=== PATIENT | female | born 1955 | race Caucasian/White ===

== ENCOUNTER → 2023-01-09 12:34 | Outpatient (CLI) | payer MEDICARE, OTHER, SELFPAY ==
--- NOTE | 2023-01-09 12:55 | MR_ITS ---
FINAL REPORT CLINICAL HISTORY: ACUTE PAIN OF RIGHT KNEE pain in the anterior aspect of knee right below patella x 3 -4 weeks COMPARISON: None FINDINGS: Multiplanar MR imaging of the right knee was performed without contrast. There is medial meniscal degeneration with a tear of the body. Lateral meniscus is intact. There is mild degenerative change. The anterior and posterior cruciate ligaments are intact. The medial collateral ligament and lateral ligamentous complex are intact. The patellar and quadriceps tendons are intact. There is no evidence of fracture. There is severe patellofemoral chondromalacia with several subchondral cysts. A small joint effusion is seen. The musculature is intact. IMPRESSION: Medial meniscal tear. Severe patellofemoral chondromalacia. Reviewed, Interpreted and Dictated by Mickey Bauer III, MD Transcribed by Samara Blanc Authenticated and [facility]
== END ==
PROVIDERS: PCP Nurse Practitioner Family; Visit Provider Physician Assistant
DX: M25.561 Pain in right knee (principal); S83.281A Other tear of lateral meniscus, current injury, right knee, initial encounter
CPT/HCPCS: 73721

== ENCOUNTER → 2023-01-20 08:40 | Outpatient (CLI) | payer MEDICARE, OTHER, SELFPAY ==
--- NOTE | 2023-01-20 08:49 | XR_ITS ---
FINAL REPORT CLINICAL HISTORY: right knee pain FINDINGS: 3 views of the right knee were obtained. There is no acute fracture or dislocation. There is moderate narrowing of the patellofemoral joint. There is sharpening of the tibial spines. IMPRESSION: Mild to moderate osteoarthritis. Reviewed, Interpreted and Dictated by Sumit Tucker MD Transcribed by Shayne Goldman Authenticated and [facility]
== END ==
PROVIDERS: PCP Nurse Practitioner Family; Visit Provider Orthopaedic Surgery
DX: M25.561 Pain in right knee (principal)
CPT/HCPCS: 73562

== ENCOUNTER → 2023-02-09 11:48 | Outpatient (CLI) | payer MEDICARE, OTHER, SELFPAY ==
--- NOTE | 2023-02-09 12:05 | ECG_ITS ---
APPROVED REPORT Exam: Resting ECG HR:71 bpm ECG Measurements Heart Rate 71 AXES AR 177 P 16 QRSd 88 QRS -20 QT 380 T 62 QTc 403 Conclusion SINUS RHYTHM WITH OCCASIONAL SUPRAVENTRICULAR PREMATURE COMPLEXES NONSPECIFIC ST & T-WAVE ABNORMALITY BORDERLINE ECG UNCONFIRMED REPORT Electronically signed by : Abhi Peñaloza MD 02/10/2023 21:22:41
--- NOTE | 2023-02-09 12:19 | XR_ITS ---
FINAL REPORT CLINICAL HISTORY: htn. pre-op for knee surgery next week FINDINGS: Two views of the chest were obtained. The heart size and pulmonary vascularity are within normal limits. The mediastinum is normal. No acute pulmonary abnormality is identified. There is no pneumothorax. The bony thorax is intact. IMPRESSION: No active cardiopulmonary disease. Reviewed, Interpreted and Dictated by Mickey Bauer III, MD Transcribed by Shayne Goldman Authenticated and [facility]
[2023-02-09 14:09] LABS: Basophils # 0.1 K/mm3 (0-0.2); Basophils % 0.7 % (0.1-2.0); Eosinophils # 0.3 K/mm3 (0.0-0.4); Eosinophils % 4.1 % (0.1-12.0); Hematocrit 40.8 % (37.0-47.0); Hemoglobin 13.2 g/dL (12.2-16.2); Lymphocytes # 1.6 K/mm3 (0.7-4.5); Lymphocytes % 25.7 % (10-50); Mean Corpuscular HGB Conc 32.3 g/dL (31.8-35.4); Mean Corpuscular Hemoglobin 30.3 pg (27.0-31.2); Mean Corpuscular Volume 93.8 fl (81-99); Mean Platelet Volume 8.4 fl (7.4-10.4); Monocytes # 0.4 K/mm3 (0.1-1.0); Monocytes % 6.8 % (1.7-9.3); Neutrophils % 62.6 % (37.0-80.0); Platelet Count 482 K/mm3 (142-424); Red Blood Count 4.35 M/mm3 (4.20-5.40); Red Cell Distribution Width 12.9 % (11.5-17.5); White Blood Count 6.4 K/mm3 (4.8-10.8)
[2023-02-09 14:25] LABS: Chloride 101 mmol/L (98-107); Potassium 4.3 mmoL/L (3.5-5.1); Sodium 137 mmol/L (136-145)
[2023-02-09 14:28] LABS: Alanine Aminotransferase 27 U/L (12-78); Albumin Level 4.4 g/dl (3.5-5.0); Albumin/Globulin Ratio 1.8 (1.1-1.8); Alkaline Phosphatase 104 U/L (38-126); Anion Gap 12.3 mEq/L (5-15); Aspartate Amino Transferase 31 U/L (14-36); Bilirubin,Total 0.2 mg/dl (0.2-1.3); Blood Urea Nitrogen 16 mg/dl (7-17); Carbon Dioxide 28 mmol/L (22.0-30.0); Estimated Glomerular Filt Rate 72 ml/min (>60); GFR (African American) 87 ML/MIN (>60); Globulin 2.5 g/dL (1.3-3.2); Total Protein,Serum 6.9 g/dl (6.3-8.2)
[2023-02-09 14:29] LABS: Calcium 10.6 mg/dl (8.4-10.2); Glucose 88 mg/dl (74-100)
== END ==
PROVIDERS: PCP Nurse Practitioner Family; Visit Provider Orthopaedic Surgery
DX: M25.561 Pain in right knee (principal); S83.231A Complex tear of medial meniscus, current injury, right knee, initial encounter; Z01.818 Encounter for other preprocedural examination
CPT/HCPCS: 36415; 71046; 80053; 85025; 93005

== ENCOUNTER 2023-02-18 06:00 | Day surgery (SDC) | payer MEDICARE, OTHER, SELFPAY ==
[2023-02-17 09:22] VITALS: BMI 30.3
[2023-02-18] VITALS (11 sets, daily range): BP systolic 108–143; BP diastolic 62–75; PULSE 62–93; RESP 12–18; TEMP 36.1–43; O2SAT 94–97
--- NOTE | 2023-02-18 07:06 | P.PN_ITS ---
[facility] Disclaimer: The information contained in this section may have been updated after the patient was seen, as this information can be updated by other users. Medical History HTN (hypertension) Surgical History H/O tubal ligation Family History Other Family history of heart disease Social History Smoking Status: Never smoker alcohol intake: never substance use type: denies use current occupational status: retired Travel in the last 8 weeks: None [facility] Anesthesia Checklist Patient Identification Patient Identification: Arm Band and Verbal (Name & ) Structural Data Admitted From: Home Planned Operative Procedure/s: Knee arthroscopy Consent for Planned Operative Procedure(s) Verified: Yes Chart Verification Results Verified: CBC and BMP Additional verifications Anesthesia Reactions: No Hx Blood Transfusions: No Blood Transfusion Reaction: No Airway Assessment C-Spine Mobility Assessed: Yes TMJ Mobility Assessed: Yes Dentition: Good Dentition Neurological Assessment Level of Consciousness: Awake Hx Seizures: No Numbness or tingling in extremities: No Anesthesia Plan Anesthesia Risk discussed: Yes Anesthesia Plan: Verified ASA Class: II Anesthesia Type: General
--- NOTE | 2023-02-18 08:01 | EXP.ANES.CKL ---
[facility] Disclaimer: The information contained in this section may have been updated after the patient was seen, as this information can be updated by other users. Medical History HTN (hypertension) Surgical History H/O tubal ligation Family History Other Family history of heart disease Social History (Updated 02/18/23 @ 07:07 by Tim Carr CRNA) Smoking Status: Never smoker alcohol intake: never substance use type: denies use current occupational status: retired Travel in the last 8 weeks: None [facility] Anesthesia Checklist Patient Identification Patient Identification: Verbal (Name & ) Structural Data Admitted From: Home Planned Operative Procedure/s: r knee arthro Consent for Planned Operative Procedure(s) Verified: Yes NPO Status Verified Time NPO: 00:00 Additional verifications Anesthesia Reactions: No Hx Blood Transfusions: No Blood Transfusion Reaction: No Airway Assessment C-Spine Mobility Assessed: Yes TMJ Mobility Assessed: Yes Dentition: Good Dentition Neurological Assessment Level of Consciousness: Awake, Alert and Appropriate Anesthesia Plan Anesthesia Risk discussed: Yes Anesthesia Plan: Verified ASA Class: II Anesthesia Type: General
--- NOTE | 2023-02-18 08:29 | EXP.ANES.I ---
[facility] Anesthesia Record Part I Anesthesia Record I Intake, IV Amount: 1,000 Estimated blood loss (mL): 0 Urine output (mL): 0 Blood Pressure: 133/75 SaO2: 96 Pulse Rate: 80 Respiratory Rate: 12 Temperature: 97.5 F Patient is:: Awake and Stable Stable to PACU at:: 08:25
--- NOTE | 2023-02-18 08:40 | EXP.OP.NOTE ---
Date of procedure: 02/18/23 Pre-op Diagnosis:: Right knee meniscus tear and patellofemoral osteoarthritis Post-op Diagnosis:: Same Procedure performed:: 1. Right knee arthroscopy with partial medial meniscectomy #2 right knee arthroscopy with chondroplasty patella and trochlea Surgeon:: Stevie Ochoa DO GAS APPLIANCE ADJUSTER:: Manas Tabares Anesthesia: GETA Estimated blood loss (mL): 0 Operative findings:: See dictation Operative note:: Patient was identified preoperatively. Right knee marked with yes my initials. Transported operative suite placed supine on the operating bed. Right lower extremity was prepped and draped normal sterile fashion once prepped and draped final operative timeout performed to identify proper patient procedure and extremity. Everyone involved in the case agreed there were no counter indications to beginning. She did receive preoperative antibiotics clindamycin. Esmarch was used to exsanguinate the extremity and pneumatic tourniquet inflated to 300 mmHg. Skin F was used incise standard anterior lateral portal. Blunt with trocar was placed in the patellofemoral joint. This was exchanged with a camera. Swept directly into the medial joint line where the anterior medial portal was made under direct visualization. This was exchanged with a probe. Within the medial joint line there was a large tear of the posterior horn of the medial meniscus using a combination of straight biter and sucker shaver partial medial meniscectomy was performed back to stable rim. This was reprobed and found to be stable. Tensions brought to the intercondylar notch where the ACL was seen and intact. Tensions brought to the lateral joint line the lateral cartilage was relatively well-preserved with meniscus intact. Swept back into the medial and lateral gutters there is no pathology here back into the patellofemoral joint. Within the patellofemoral joint there is loose bowen cartilage on the undersurface of the patella and loose bowen cartilage in the trochlea using a sucker shaver this was lightly debrided to remove only the loose cartilage in the trochlea and patella. Camera was then removed the joint was drained local anesthesia filtrated the portal sites skin closed with nylon stitch. Tourniquet deflated dressing placed from toe to thigh patient waken anesthesia taken recovery stable condition. Condition: stable Disposition: PACU Complications:: None apparent
--- NOTE | 2023-02-18 08:55 | SUR.PHASEI ---
854- detailed report called to martha thomas in post op [id number]- pt left in stable condition with martha thomas. all dressings CDI, VSS
--- NOTE | 2023-02-19 07:09 | EXP.ANES.II ---
[facility] Anesthesia Record Part II Anesthesia Record Part II Discharge Time: 08:55 Destination: Surgical Day Care (OP Surgery) PACU nurse assessment reviewed?: Yes Patient Condition:: Good Anesthesia Complications:: None Swallowing reflex intact?: Yes Cyanosis?: No Blood Pressure: 117/62 Pulse Rate: 62 Temperature: 97.8 F Mental Status: Alert & Oriented Pain level:: 1 Nausea and/or vomitting:: None Intake, IV Amount: 0
[2023-02-19 07:10] VITALS: BP 117/62; PULSE 62; TEMP 36.6
== END 2023-02-18 09:26 | disposition home or self-care (01) ==
PROVIDERS: PCP Nurse Practitioner Family; Visit Provider Orthopaedic Surgery
PROC: (CPT 29870; principal; 2023-02-18 07:30)
DX: S83.231A Complex tear of medial meniscus, current injury, right knee, initial encounter (principal); Z79.899 Other long term (current) drug therapy; I10 Essential (primary) hypertension; M17.11 Unilateral primary osteoarthritis, right knee
CPT/HCPCS: 29881; 96374; J2405

== ENCOUNTER → 2023-04-23 09:46 | Outpatient (CLI) | payer MEDICARE, OTHER, SELFPAY ==
[2023-04-23 10:01] LABS: Microscopic, Urine URINE MICROSCOPIC (MICROSCOPIC)
[2023-04-23 10:19] LABS: Appearance,Urine CLEAR (Clear); Bilirubin,Urine Negative (Negative); Blood, Urine Negative (Negative); Color,Urine YELLOW (Yellow); Glucose,Urine (UA) Negative (Negative); Ketones,Urine Negative (Negative); Leukocyte Esterase,Urine 2+ (Negative); Nitrate,Urine Negative (Negative); Protein,Urine Negative (Negative); Urobilinogen,Urine 0.2 EU/dl (0.2)
[2023-04-23 10:24] LABS: Basophils % 0.8 % (0.1-2.0); Eosinophils # 0.3 K/mm3 (0.0-0.4); Eosinophils % 5.2 % (0.1-12.0); Hematocrit 40.4 % (37.0-47.0); Hemoglobin 12.9 g/dL (12.2-16.2); Lymphocytes # 1.4 K/mm3 (0.7-4.5); Lymphocytes % 27.5 % (10-50); Mean Corpuscular Hemoglobin 29.6 pg (27.0-31.2); Mean Corpuscular Volume 92.5 fl (81-99); Mean Platelet Volume 7.8 fl (7.4-10.4); Monocytes # 0.3 K/mm3 (0.1-1.0); Monocytes % 6.6 % (1.7-9.3); Platelet Count 416 K/mm3 (142-424); Red Blood Count 4.37 M/mm3 (4.20-5.40); Red Cell Distribution Width 13.2 % (11.5-17.5); White Blood Count 5.1 K/mm3 (4.8-10.8)
[2023-04-23 10:31] LABS: Bacteria,Urine 1+ /lpf
[2023-04-23 10:59] LABS: Albumin Level 4.4 g/dl (3.5-5.0); Anion Gap 9.2 mEq/L (5-15); Blood Urea Nitrogen 16 mg/dl (7-17); Calcium 10.3 mg/dl (8.4-10.2); Carbon Dioxide 30 mmol/L (22.0-30.0); Chloride 104 mmol/L (98-107); Estimated Glomerular Filt Rate 72 ml/min (>60); GFR (African American) 87 ML/MIN (>60); Glucose 98 mg/dl (74-100); Phosphorous 3.5 mg/dl (2.5-4.5); Potassium 4.2 mmoL/L (3.5-5.1); Sodium 139 mmol/L (136-145)
[2023-04-23 11:11] LABS: Intact Parathyroid Hormone 80.5 pg/mL (7.5-53.5)
[2023-04-23 11:15] LABS: 25-OH Vitamin D, Total 17.9 ng/mL (30-100)
[2023-04-23 16:10] LABS: Creatinine,Urine Random 82 mg/dL (Not Estab.)
[2023-04-23 16:13] LABS: Microalbumin/Creatinine Ratio 13.6
== END ==
PROVIDERS: PCP Nurse Practitioner Family; Visit Provider Nurse Practitioner
DX: E83.52 Hypercalcemia (principal); B96.29 Other Escherichia coli [E. coli] as the cause of diseases classified elsewhere; R82.90 Unspecified abnormal findings in urine
CPT/HCPCS: 36415; 80069; 81001; 82043; 82306; 82570; 83970; 85025; 87086; 87088; 87186

== ENCOUNTER → 2023-05-11 09:31 | Outpatient (POV) | payer MEDICARE, OTHER, SELFPAY | PROVIDERS: Visit Provider Internal Medicine Nephrology | DX: Z00.00 Encounter for general adult medical examination without abnormal findings (principal) ==

== ENCOUNTER → 2023-07-01 10:20 | Outpatient (CLI) | payer MEDICARE, OTHER, SELFPAY ==
[2023-07-01 12:35] LABS: Albumin Level 4.2 g/dl (3.5-5.0); Anion Gap 10.1 mEq/L (5-15); Blood Urea Nitrogen 17 mg/dl (7-17); Calcium 10.1 mg/dl (8.4-10.2); Carbon Dioxide 30 mmol/L (22.0-30.0); Chloride 103 mmol/L (98-107); Estimated Glomerular Filt Rate 83 ml/min (>60); GFR (African American) 101 ML/MIN (>60); Glucose 94 mg/dl (74-100); Potassium 4.1 mmoL/L (3.5-5.1); Sodium 139 mmol/L (136-145)
[2023-07-01 12:47] LABS: 25-OH Vitamin D, Total 32.6 ng/mL (30-100)
[2023-07-03 16:14] LABS: Calcium, Ionized 5.4 mg/dL (4.5-5.6)
== END ==
PROVIDERS: PCP Nurse Practitioner Family; Visit Provider Nurse Practitioner
DX: E83.52 Hypercalcemia (principal); Z68.29 Body mass index [BMI] 29.0-29.9, adult
CPT/HCPCS: 36415; 80069; 82306; 82330; 83970

== ENCOUNTER → 2023-08-04 09:50 | Outpatient (CLI) | payer MEDICARE, OTHER, SELFPAY ==
--- NOTE | 2023-08-04 09:54 | NM_ITS ---
FINAL REPORT CLINICAL HISTORY: HYPERPARATHYROIDISM FINDINGS: 20.6 mCi Technetium 99-M Sestamibi was administered. Planar imaging was performed early and two-hour delayed of the neck and upper thorax. Early imaging shows physiologic uptake within the upper neck involving the salivary glands and lower neck. There is relative increased uptake in the lower left thyroid. On delayed imaging there is mild persistent activity in the lower left thyroid. IMPRESSION: Relatively increased activity in the lower left thyroid that mildly persists on delayed phase. Unclear if this is asymmetric thyroid tissue or underlying parathyroid adenoma inferiorly on the left. Reviewed, Interpreted and Dictated by Sumit Tucker MD Transcribed by Shayne Goldman Authenticated and [facility]
== END ==
PROVIDERS: PCP Nurse Practitioner Family; Visit Provider Nurse Practitioner
DX: E21.3 Hyperparathyroidism, unspecified (principal)
CPT/HCPCS: 78071; A9500

== ENCOUNTER → 2023-08-06 13:12 | Outpatient (CLI) | payer MEDICARE, OTHER, SELFPAY ==
[2023-08-06 14:51] LABS: 25-OH Vitamin D, Total 28.5 ng/mL (30-100)
== END ==
PROVIDERS: PCP Nurse Practitioner Family; Visit Provider Nurse Practitioner
DX: E21.3 Hyperparathyroidism, unspecified (principal); E55.9 Vitamin D deficiency, unspecified; Z68.29 Body mass index [BMI] 29.0-29.9, adult
CPT/HCPCS: 36415; 82306

== ENCOUNTER → 2023-09-11 15:11 | Outpatient (CLI) | payer MEDICARE, OTHER, SELFPAY ==
--- NOTE | 2023-09-11 15:21 | MM_ITS ---
PROCEDURE INFORMATION: Exam: MG Bilateral Screening 3D Mammography Exam date and time: 09/11/2023 3:11 PM Age: 68 years old Clinical indication: Screening examination TECHNIQUE: Imaging protocol: Bilateral Screening tomosynthesis and 2D mammography including computer-aided detection (CAD) when performed. COMPARISON: 1. MG 3D SCREENING MAMMOGRAM 03/11/2022 11:37 AM 2. MG 3D SCREENING MAMMOGRAM 11/29/2020 3:09 PM FINDINGS: MAMMOGRAPHY: Breast composition: There are scattered areas of fibroglandular density. Mass: None. Architectural distortion: None. Calcifications: No suspicious calcifications. Asymmetric density: None. Skin thickening: None. Axillary adenopathy: None. IMPRESSION: No mammographic evidence of malignancy. Annual screening is recommended unless otherwise clinically indicated. ASSESSMENT: BI-RADS Category 1: Negative
== END ==
PROVIDERS: PCP Nurse Practitioner Family; Visit Provider Nurse Practitioner Family
DX: Z12.31 Encounter for screening mammogram for malignant neoplasm of breast (principal)
CPT/HCPCS: 77063; 77067

== ENCOUNTER 2024-01-19 09:14 | Outpatient (CLI) | payer MEDICARE, OTHER, SELFPAY ==
--- NOTE | 2024-01-19 09:18 | XR_ITS ---
FINAL REPORT CLINICAL HISTORY: POST MENOPAUSAL COMPARISON: None FINDINGS: Using L1-4, the bone mineral density of the spine is 1.074 g/cm2, corresponding to T-score of 0.2. Using the left hip, the bone mineral density of the femoral neck is 0.77 g/cm2, corresponding to a T-score of -1.4. Using the right hip, the bone mineral density of the femoral neck is 0.759 g/cm?, corresponding to a T-score of -0.8. NOTE: T-score: Standard deviation compared with peak bone mass of young adult mean. *Following the recommendations of the International Society of Bone densitometry, classification of hip BMD is based on the lower of two T-scores; total hip or femoral neck. IMPRESSION: Bone mineral density of the lumbar spine and the right hip are consistent with normal bone mineral density. Bone mineral density of the left femoral neck is consistent with osteopenia. Reviewed, Interpreted and Dictated by Radha Osborne MD Transcribed by Alta Mueller Authenticated and [facility]
== END 2024-01-19 23:59 | disposition home or self-care (01) ==
LOC: RAD 09:14
PROVIDERS: PCP Nurse Practitioner Family; Visit Provider Surgery Surgical Oncology
DX: E21.3 Hyperparathyroidism, unspecified (principal); Z78.0 Asymptomatic menopausal state; M85.89 Other specified disorders of bone density and structure, multiple sites
CPT/HCPCS: 77080

== ENCOUNTER 2024-05-02 09:25 | Outpatient (CLI) | payer MEDICARE, OTHER, SELFPAY | END 2024-05-02 23:59 | disposition home or self-care (01) | LOC: RT 09:27 | PROVIDERS: PCP Nurse Practitioner Family; Visit Provider Nurse Practitioner Family | DX: R00.2 Palpitations (principal) | CPT/HCPCS: 93225; 93226 ==

== ENCOUNTER 2024-05-19 09:17 | Outpatient (CLI) | payer MEDICARE, OTHER, SELFPAY ==
--- NOTE | 2024-05-19 | CA_ITS ---
APPROVED REPORT Exam: Exercise Treadmill Technologist: Anuradha Conteh, Ht: 5 ft 5 in Wt: 188 lbs BSA: 1.93 m2 HR: 85 bpm BP: 129/78 mmHg Rhythm: Nsr, slow R wave progression Medical History Medical History: HTN, , Hyperlipidemia Medications: Lisinopril,,,,, Pravastatin,,,,, BiOTIN,,,,, Furosemide,,,,, Allergies: Penicillin, red dye Cardiac Risk Factors: HTN, Hyperlipidemia Stress Test Details Test: Jeovanny HR Resting HR: 90 bpm Max Heart Rate (APMHR): 152.185902 bpm Max HR Achieved: 130 bpm Target HR (85% APMHR): 129.553332 bpm % of APMHR: 85.53 Recovery HR: 94 bpm BP Resting BP: 129/78 mmHg Max BP: 230/80 mmHg Recovery BP: 145.0/82.0 mmHg ECG Resting ECG: Nsr, slow R wave progression Clinical Exercise duration: 06:00 min Highest Stage Achieved: Stage 2: 2.5 mph at 12% grade. Exercise capacity: 7.0 METs Stress ECG Conclusion Pt walked 6:00 on Jeovanny protocol Max HR: 130 % of PM: 86% Max BP: 230/80 Mets: 7.0 Test stopped due to: soa, fatigue No CP Rare PVC Within normal ST response to exercise Normal GXT GXT only (no imaging) Test Summary REST . . . . . . . Sitting REST 03:47 0.0 0.0 90 . 129/ 78 . . Stage 1 01:00 10.0 1.7 102 . . . . Stage 1 02:00 10.0 1.7 107 . . . . Stage 1 03:00 10.0 1.7 109 . 190/ 86 . . Stage 2 01:00 12.0 2.5 121 . . . . Stage 2 02:00 12.0 2.5 128 . . . . Stage 2 03:00 12.0 2.5 129 . 230/ 80 . Stop exercise at 06:00 RECOVERY 01:00 0.0 0.0 115 . . . . RECOVERY 02:00 0.0 0.0 103 . 196/ 82 . . RECOVERY 03:00 0.0 0.0 100 . 169/ 70 . . RECOVERY 04:00 0.0 0.0 95 . 169/ 70 . . RECOVERY 05:00 0.0 0.0 94 . 169/ 70 . . RECOVERY 05:40 0.0 0.0 94 . 145/ 82 . . Electronically signed by : Abhi Peñaloza MD 05/20/2024 16:29:13
--- NOTE | 2024-05-19 09:30 | CA_ITS ---
APPROVED REPORT EXAM: Comprehensive 2D, Doppler, and color-flow Echocardiogram Woodworking Machine Offbearer: Paula Mcmahan, RT(R) Ht: 5 ft 5 in Wt: 188lbs BSA: 1.93 BP: 142/84 mmHg Indications: bigeminy, edema, palpitations, fatigue, HTN, hyperlipidemia, family history of HD, father at 59 from [place]. 2D Dimensions Left Atrium 2.58 cm F: 2.7 - 3.8 LA Volume 20.00 mL LVOT 2.05 cm (M/F) 1.5-2.5 LA Volume Index 10.36 mL/m2 (M/F) 16-34 EF AP4 61.20 % GL Strain -19.8 % M-Mode Dimensions RVDd 2.05 cm (0.9-2.6) LVDd 3.78 cm (3.5-5.7) Ao Diam 3.96 cm (2.0-3.7) LVDs 2.81 cm (3.5-5.7) IVSd 1.09 cm (0.6-1.1) PWd 1.25 cm (0.6-1.1) EF (Teich) 51.30% FS 25.70% EDV (Teich) 61.20 mL ESV (Teich) 29.80 mL LV Diastology E Decel Time 156 (160-240 msec) E/A Ratio 0.5 MED E' 4.6 (>= 7 cm/sec) E'/MED E' Ratio 12.20 (<= 14) LAT E' 7.3 (>= 10 cm/sec) E/LAT E' Ratio 7.68 (<= 14) Aortic Valve AI PHT 605.00 ms Mitral Valve MV E Max Gage. 56.0 (40-130 cm/s) MV A Velocity 114.0 (40-130 cm/s) E/A Ratio 0.49 MV Decel. Time 156 (160-240 ms) Left Ventricle The left ventricle is normal size. The left ventricular systolic function is normal. The left ventricular ejection fraction is within the normal range. There is increased LV wall thickness. There is normal LV segmental wall motion. Transmitral Doppler flow pattern suggests impaired LV relaxation. LVEF is 55%. Right Ventricle The right ventricle is normal size. The right ventricular systolic function is normal. Atria The left atrium size is normal. The right atrium size is normal. There is no Doppler evidence of interatrial shunt. Aortic Valve The aortic valve is mildly thickened. There is no aortic valvular stenosis. Mild to moderate aortic regurgitation. Mitral Valve The mitral valve is normal in structure. No evidence of mitral valve stenosis. Trace mitral regurgitation. Tricuspid Valve The tricuspid valve leaflets are thin and pliable. Trace tricuspid regurgitation. There is insufficient TR jet to estimate RVSP. Pulmonic Valve The pulmonary valve is normal in structure. Trace pulmonic regurgitation. Great Vessels The aortic root is mildly dilated, measuring 4.5 cm in diameter. The ascending aorta is mildly dilated, measuring 4.0 cm in diameter. IVC is normal in size and collapses >50% with inspiration. Pericardium There is no pericardial effusion. Other Information Study Quality: Fair Conclusion Normal biventricular size and systolic function. Mild to moderate AI. Mild dilation of aortic root (4.5 cm) and proximal ascending aorta (4.0 cm). Serial TTE evaluations for AI is suggested. Correlation of size of aortic root and ascending aorta with recent or new CTA chest is recommended. Electronically signed by : Hoda Hearn MD 05/25/2024 10:24:02
== END 2024-05-19 23:59 | disposition home or self-care (01) ==
LOC: RT 09:19
PROVIDERS: PCP Nurse Practitioner Family; Visit Provider Nurse Practitioner Family
DX: R07.9 Chest pain, unspecified (principal); I49.9 Cardiac arrhythmia, unspecified
CPT/HCPCS: 93017; 93306

== ENCOUNTER 2024-06-27 09:21 | Outpatient (CLI) | payer MEDICARE, OTHER, SELFPAY ==
[2024-06-27 10:17] LABS: Basophils # 0.1 K/mm3 (0-0.2); Basophils % 1.4 % (0.1-2.0); Eosinophils # 0.3 K/mm3 (0.0-0.4); Eosinophils % 6.2 % (0.1-12.0); Hematocrit 42.8 % (37.0-47.0); Hemoglobin 13.9 g/dL (12.2-16.2); Lymphocytes # 1.5 K/mm3 (0.7-4.5); Lymphocytes % 26.7 % (10-50); Mean Corpuscular HGB Conc 32.4 g/dL (31.8-35.4); Mean Corpuscular Hemoglobin 30.5 pg (27.0-31.2); Mean Corpuscular Volume 94.2 fl (81-99); Mean Platelet Volume 7.4 fl (7.4-10.4); Monocytes # 0.4 K/mm3 (0.1-1.0); Neutrophils # 3.2 K/mm3 (1.8-7.8); Neutrophils % 58.6 % (37.0-80.0); Platelet Count 419 K/mm3 (142-424); Red Blood Count 4.54 M/mm3 (4.20-5.40); Red Cell Distribution Width 13.6 % (11.5-17.5); White Blood Count 5.5 K/mm3 (4.8-10.8)
[2024-06-27 10:30] LABS: Alanine Aminotransferase 23 U/L (12-78); Albumin Level 4.3 g/dl (3.5-5.0); Albumin/Globulin Ratio 1.7 (1.1-1.8); Alkaline Phosphatase 91 U/L (38-126); Anion Gap 9.3 mEq/L (5-15); Aspartate Amino Transferase 26 U/L (14-36); Bilirubin,Total 0.6 mg/dl (0.2-1.3); Blood Urea Nitrogen 15 mg/dl (7-17); Calcium 9.4 mg/dl (8.4-10.2); Carbon Dioxide 27 mmol/L (22.0-30.0); Chloride 105 mmol/L (98-107); Chol/HDL Ratio 3.7 (1-3.5); Cholesterol 206 mg/dl (140-200); Estimated Glomerular Filt Rate 62 ml/min (>60); GFR (African American) 75 ML/MIN (>60); Globulin 2.5 g/dL (1.3-3.2); Glucose 98 mg/dl (74-100); HDL Cholesterol 55 mg/dl (40-60); Potassium 4.3 mmoL/L (3.5-5.1); Sodium 137 mmol/L (136-145); Total Protein,Serum 6.8 g/dl (6.3-8.2); Triglycerides 124 mg/dl (30-150); VLDL Cholesterol 25 mg/dL (0-40)
[2024-06-27 10:40] LABS: Intact Parathyroid Hormone 57.9 pg/mL (7.5-53.5)
[2024-06-27 10:41] LABS: Direct LDL Cholesterol 106.71 mg/dL (100-129)
[2024-06-27 10:44] LABS: 25-OH Vitamin D, Total 32.6 ng/mL (30-100)
[2024-06-27 11:18] LABS: Vitamin B12 495 pg/mL (239-931)
== END 2024-06-27 23:59 | disposition home or self-care (01) ==
PROVIDERS: PCP Nurse Practitioner Family; Visit Provider Nurse Practitioner Family
DX: E83.52 Hypercalcemia (principal); E78.5 Hyperlipidemia, unspecified; G60.9 Hereditary and idiopathic neuropathy, unspecified
CPT/HCPCS: 36415; 80053; 80061; 82306; 82607; 83970; 85025

== ENCOUNTER 2024-06-28 12:24 | Outpatient (CLI) | payer MEDICARE, OTHER, SELFPAY ==
--- NOTE | 2024-06-28 12:31 | CT_ITS ---
FINAL REPORT TECHNIQUE: Thin section axial CT images of the chest were obtained with contrast. Three-D reformatted images were also obtained.This study was performed with techniques to keep radiation doses as low as reasonably achievable (ALARA). Individualized dose reduction techniques using automated exposure control or adjustment of mA and/or kV according to the patient's size were employed. CLINICAL HISTORY: AORTIC ROOT DILATION COMPARISON: None FINDINGS: There is ectasia of the ascending aorta, measuring 39 mm in diameter. There is no evidence of pulmonary embolism. There is no evidence of thoracic aortic dissection. There is no evidence of mediastinal or hilar mass or adenopathy. Mild atelectasis versus scarring is present in the lung bases. There is a 5 mm right middle lobe nodule best seen on image #44 of series 3. No localized inflammatory process is seen within the lungs. Limited images of the upper abdomen are remarkable for several hepatic cysts. Gallstones are noted in the gallbladder with mild wall thickening. Left renal cysts are noted as well. IMPRESSION: No evidence of pulmonary embolism. Ectasia of the ascending aorta, measuring 39 mm in diameter. 5 mm right middle lobe nodule as described above, suggest 6-month follow-up CT of the chest for further evaluation. Gallstones are present in the gallbladder, with mild gallbladder wall thickening but no evidence of biliary ductal dilatation. Reviewed, Interpreted and Dictated by Mickey Bauer III, MD Transcribed by Alta Mueller Authenticated and [facility]
[2024-06-28] MEDS: IOPAMIDOL-370 (76%);100ML BOTTLE 100 ML IV (13:05)
[2024-06-28] MEDS: SODIUM CHLORIDE 0.9% 10ML SYR (RAD ONLY) 10 ML IV (13:05)
[2024-06-28] MEDS: 0.9 % SODIUM CHLORIDE 50 ML VIAL IV (13:05)
== END 2024-06-28 23:59 | disposition home or self-care (01) ==
LOC: RAD 12:24
PROVIDERS: PCP Nurse Practitioner Family; Visit Provider Nurse Practitioner Family
DX: I77.810 Thoracic aortic ectasia (principal)
CPT/HCPCS: 71275; Q9967

== ENCOUNTER 2024-07-04 14:25 | Outpatient (CLI) | payer MEDICARE, OTHER, SELFPAY ==
[2024-07-04 15:22] LABS: Free Thyroxine Index 3.1 ug/dL (5.93-13.13); Triiodothryronine (T3) Uptake 31 % (23.5-40.5)
[2024-07-04 15:36] LABS: Thyroid Stimulating Hormone 1.44 uIU/mL (0.465-4.68)
== END 2024-07-04 23:59 | disposition home or self-care (01) ==
LOC: LAB 14:26
PROVIDERS: PCP Nurse Practitioner Family; Visit Provider Internal Medicine
DX: I35.1 Nonrheumatic aortic (valve) insufficiency (principal); R00.0 Tachycardia, unspecified; R07.9 Chest pain, unspecified; I10 Essential (primary) hypertension; R94.31 Abnormal electrocardiogram [ECG] [EKG]
CPT/HCPCS: 36415; 84436; 84443; 84479

== ENCOUNTER 2024-07-08 06:50 | Outpatient (CLI) | payer MEDICARE, OTHER, SELFPAY ==
--- NOTE | 2024-07-08 | CA_ITS ---
APPROVED REPORT Exam: Exercise Treadmill Technologist: Anuradha Conteh, Ht: 5 ft 6 in Wt: 192 lbs BSA: 1.97 m2 HR: 64 bpm BP: 169/96 mmHg Rhythm: NSR Medical History Medical History: HTN Medications: Lisinopril,,,,, Pravastatin,,,,, Toprol,,,,, BiOTIN,,,,, Furosemide,,,,, TUmeric root extract,,,,, Allergies: Penicillins, red dye Cardiac Risk Factors: HTN, FHX of CAD Stress Test Details Test: Manual Treadmill, Exercise stress testing was performed using a modified Jeovanny protocol. HR Resting HR: 73 bpm Max Heart Rate (APMHR): 152 bpm Max HR Achieved: 134 bpm Target HR (85% APMHR): 129 bpm % of APMHR: 88 Recovery HR: 77 bpm HR response to stress: Normal HR response to stress BP Resting BP: 169.0/96 mmHg Max BP: 226/96 mmHg Recovery BP: 174.0/95.0 mmHg BP response to stress: Abnormal hypertensive response to stress. ECG Resting ECG: NSR Stress EC.[address] depression Arrhythmia: PACs Recovery ECG: Return to baseline within 3 minutes of recovery Recovery Arrhythmia: None Clinical Exercise duration: 07:01 min Highest Stage Achieved: Exercise capacity: 8.2 METs Overall Exercise Capacity for Age: Average Stress ECG Conclusion Pt exercised 7:01 on Jeovanny protocol with speed decreased over last 45 seconds Max HR: 134 % of PM: 88% Max BP: 226/96 Mets: 8.2 Test stopped due to: soa No CP Ectopy: PACs ST changes: 0.[address] depression Conclusion: Average exercise capacity. Hypertensive BP response to exercise. No evidence of ECG changes at peak stress. Myoview images reported separately Test Summary REST . . . . . . . Standing REST . . . . . . . Sitting REST 03:39 0.0 0.0 73 . 169/ 96 . . Stage 1 01:00 10.0 1.7 92 . . . . Stage 1 02:00 10.0 1.7 99 . . . . Stage 1 03:00 10.0 1.7 104 . 196/ 94 . . Stage 2 01:00 12.0 2.5 113 . . . . Stage 2 02:00 12.0 2.5 120 . 226/ 96 . . Stage 2 03:00 12.0 2.5 125 . 226/ 96 . . Stage 3 . . . . . . . Protocol changed to Manual Treadmill Stage 3 01:00 14.0 2.7 132 . . . . Stage 3 01:01 14.0 2.7 132 . . . Stop exercise at 07:01 RECOVERY 01:00 0.0 0.0 113 . . . . RECOVERY 02:00 0.0 0.0 96 . . . . RECOVERY 03:00 0.0 0.0 87 . 209/ 85 . . RECOVERY 04:00 0.0 0.0 82 . 192/ 81 . . RECOVERY 05:00 0.0 0.0 79 . 192/ 81 . . RECOVERY 06:00 0.0 0.0 80 . 176/ 83 . . RECOVERY 07:00 0.0 0.0 77 . 174/ 95 . . RECOVERY 07:21 0.0 0.0 76 . 174/ 95 . . Electronically signed by : Hoda Hearn MD 07/11/2024 12:43:54
--- NOTE | 2024-07-08 06:55 | NM_ITS ---
APPROVED REPORT Exam: Nuclear Stress Test Indication: htn, hyperlipidemia, fm hx, c.p., sob, palpitations, fatigue Patient Location: Outpatient Stress Tech: Anuradha Conteh DC Tech:Lexie Murphy DIMPLE RT (R)(N)(M) Ht: 5 ft 6 in Wt: 190 lbs Bra Size: 38B HR: 73 bpm BP: 169/96 mmHg BSA: 1.96 m2 TID: 1.12 BMI: 30.6 History: htn, hyperlipidemia, fm hx, c.p., sob, palpitations, fatigue Procedure: Patient exercised on Jeovanny protocol 7:00 minutes and sec, resting heart rate 73 bpm, resting blood pressure 169/96 mmHg, with exercise maximum heart rate achived was 134 bpm which is 88 % of the maximum predicted heart rate and blood pressure was 226/96 mmHg. Test was stopped due to sob, fatigue. Patient denied any complaint of chest pain. Patient has exercise capacity, achieved 8.2 METs of workload on treadmill, the blood pressure response to exercise was . Cardiac Stress and Resting SPECT Images: Cardiac Stress and Resting SPECT images were obtained using technetium 99m Myoview 31.5 mCi stress and 10.29 mCi at rest. Resting and stress imaging in supine and prone positions demonstrate no evidence of fixed or reversible perfusion defects. Gated imaging demonstrates normal global and regional LV systolic function. LVEF estimated at 60%. Conclusion: No evidence of fixed or reversible perfusion defects. Gated imaging demonstrates normal global and regional LV systolic function. LVEF estimated at 60%. Of note, the patient had a hypertensive BP response to exercise (BP 226/96 mmHg). BP control is recommended. Electronically signed by : Hoda Hearn MD 07/11/2024 12:55:40
[2024-07-08] MEDS: REGADENOSON 0.4MG/5ML SYRINGE 0.4 MG IV (09:43)
[2024-07-08] MEDS: ISOTOPE MYOVIEW (PER STUDY) 1 DOSE IV (09:43)
[2024-07-08] MEDS: SODIUM CHLORIDE 0.9% 10ML SYR (RAD ONLY) 10 ML IV ×2 (09:43)
== END 2024-07-08 23:59 | disposition home or self-care (01) ==
LOC: RAD 06:51
PROVIDERS: PCP Nurse Practitioner Family; Visit Provider Internal Medicine
DX: R07.9 Chest pain, unspecified (principal)
CPT/HCPCS: 78452; 93017; 93018; A9502; J2785

== ENCOUNTER 2024-08-09 13:50 | Outpatient (CLI) | payer MEDICARE, OTHER, SELFPAY ==
[2024-08-09 14:37] LABS: Creatinine,Urine Random 35 mg/dL (Not Estab.); Microalbumin < 6.000 mg/L (0-16.7)
== END 2024-08-09 23:59 | disposition home or self-care (01) ==
PROVIDERS: PCP Nurse Practitioner Family; Visit Provider Internal Medicine
DX: R60.0 Localized edema (principal); R94.31 Abnormal electrocardiogram [ECG] [EKG]; R06.09 Other forms of dyspnea; R07.89 Other chest pain; R00.0 Tachycardia, unspecified; I35.1 Nonrheumatic aortic (valve) insufficiency; I77.810 Thoracic aortic ectasia
CPT/HCPCS: 82043; 82570; 93270

== ENCOUNTER 2024-08-16 11:32 | Outpatient (CLI) | payer MEDICARE, OTHER, SELFPAY ==
--- NOTE | 2024-08-16 11:40 | US_ITS ---
FINAL REPORT CLINICAL HISTORY: BILATERAL LEG PAIN,HTN,HLD FINDINGS: Complete ankle-brachial indices were obtained. The right CHOLO is 1.1. Left CHOLO is 1.0. IMPRESSION: ABIs are within normal limits bilaterally. Reviewed, Interpreted and Dictated by Mahnaz Morel MD Transcribed by Keila Lopez Authenticated and [facility]
== END 2024-08-16 23:59 | disposition home or self-care (01) ==
LOC: RT 11:34
PROVIDERS: PCP Nurse Practitioner Family; Visit Provider Internal Medicine
DX: I73.9 Peripheral vascular disease, unspecified (principal); I77.810 Thoracic aortic ectasia; R60.0 Localized edema; M79.606 Pain in leg, unspecified; R94.31 Abnormal electrocardiogram [ECG] [EKG]; R06.09 Other forms of dyspnea; R07.89 Other chest pain; R00.0 Tachycardia, unspecified; I35.1 Nonrheumatic aortic (valve) insufficiency
CPT/HCPCS: 93923

== ENCOUNTER 2024-08-29 06:07 | Day surgery (SDC) | payer MEDICARE, OTHER, SELFPAY ==
[2024-08-26 12:14] VITALS: BMI 30.7
[2024-08-29 06:24] VITALS: BP 150/75; PULSE 83; RESP 18; TEMP 36.1; O2SAT 96
[2024-08-29] MEDS: LACTATED RINGERS 1000ML 1,000 ML 25 ML IV (06:31)
--- NOTE | 2024-08-29 07:26 | EXP.ANES.CKL ---
[facility] Disclaimer: The information contained in this section may have been updated after the patient was seen, as this information can be updated by other users. Medical History (Updated 08/29/24 @ 07:31 by Jack Villafana II, MD) Claudication Ascending aorta dilatation Edema of both lower extremities HTN (hypertension) Surgical History History of parathyroid surgery History of surgery H/O knee surgery H/O tubal ligation Family History Other Breast cancer Colon cancer Family history of heart disease Hypertension Social History (Updated 08/29/24 @ 06:31 by Ana Carlisle RN) Smoking Status: Never smoker alcohol intake: never substance use type: denies use current occupational status: retired Travel in the last 8 weeks: Inside the [place] caffeine: Yes [facility] Anesthesia Checklist Patient Identification Patient Identification: Arm Band and Family Structural Data Admitted From: Home Planned Operative Procedure/s: Colonoscopy Consent for Planned Operative Procedure(s) Verified: Yes Verified Documents: Surgical Consent NPO Status Verified Time NPO: 05:15 Chart Verification Results Verified: CBC and BMP Additional verifications Patient : No Anesthesia Reactions: No Hx Blood Transfusions: No Blood Transfusion Reaction: No Cardiovascular Assessment Heart Sounds: S1 & S2 Pulse Rhythm: Irregular Peripheral Edema: No Airway Assessment Mallampati Score:: Class II C-Spine Mobility Assessed: No TMJ Mobility Assessed: No Dentition: Good Dentition (Nothing loose per ) Neurological Assessment Level of Consciousness: Awake, Alert, Appropriate and Follows Commands Hx Seizures: No Numbness or tingling in extremities: No Anesthesia Plan Anesthesia Risk discussed: Yes Anesthesia Plan: Verified ASA Class: III Anesthesia Type: MAC
--- NOTE | 2024-08-29 07:26 | EXP.HP ---
History of Present Illness *Admission Date: 08/29/24 *Reason for visit:: Personal history of adenomatous colon polyps *History of present illness: Mrs. Cao is a 69-year-old female who is here for surveillance colonoscopy secondary to a personal history of adenomatous colon polyps. The examination is deemed medically necessary for surveillance colonoscopy. The patient has been seen, interviewed and examined prior to the procedure by both myself and the anesthesia provider. [facility] Disclaimer: The information contained in this section may have been updated after the patient was seen, as this information can be updated by other users. Medical History (Updated 08/29/24 @ 07:31 by Jack Villafana II, MD) Claudication Ascending aorta dilatation Edema of both lower extremities HTN (hypertension) Surgical History History of parathyroid surgery History of surgery H/O knee surgery H/O tubal ligation Family History Other Breast cancer Colon cancer Family history of heart disease Hypertension Social History (Updated 08/29/24 @ 06:31 by Ana Carlisle RN) Smoking Status: Never smoker alcohol intake: never substance use type: denies use current occupational status: retired Travel in the last 8 weeks: Inside the [place] caffeine: Yes Other Medical History Have you received the Pneumonia Vaccine: Yes Review of Systems Review of Systems Review of systems (narrative): Negative *Cardiovascular Comments: Negative *Gastrointestinal Comments: Negative *Genitourinary Comments: Negative *Musculoskeletal Comments: Negative *Neurologic Comments: Negative Meds Home Medications and Allergies Home Medications ?Medication ?Instructions ?Recorded ?Confirmed ?Type biotin 500 mcg capsule 1 mg PO DAILY 07/04/24 08/29/24 History lisinopril 20 mg tablet 20 mg PO DAILY Blood pressure 07/04/24 08/29/24 History pravastatin 20 mg tablet 20 mg PO DAILY Cholesterol 07/04/24 08/29/24 History turmeric root extract 500 mg 500 mg PO DAILY 07/04/24 08/29/24 History capsule furosemide 40 mg tablet (Lasix) 40 mg PO DAILY edema #90 tabs 08/09/24 08/29/24 Rx metoprolol succinate 25 mg 25 mg PO DAILY #90 tabs 08/09/24 08/29/24 Rx tablet,extended release 24 hr (Toprol XL) sodium,potassium,mag sulfates 17.5 See Rx Instructions PO .COMPLEX 08/19/24 08/29/24 Rx gram-3.13 gram-1.6 gram oral soln #354 mL (Suprep Bowel Prep Kit) New Prescriptions to Start Prescriptions: Allergies Allergy/AdvReac Type Severity Reaction Status Date / Time Penicillins Allergy Hives Verified 08/29/24 06:21 red dye Allergy Hives Verified 08/29/24 06:21 Exam Data for Last 24 hours Vital signs and Labs for Last 24 Hours: Temp Pulse Resp BP Pulse Ox O2 Del Method 97.0 F L 83 18 150/75 H 96 Room Air 08/29/24 06:24 08/29/24 06:24 08/29/24 06:24 08/29/24 06:24 08/29/24 06:24 08/29/24 06:24 I & O for Last 24 hours: Intake & Output 08/26/24 08/27/24 08/28/24 08/29/24 23:59 23:59 23:59 23:59 Weight 190 lb *Routine HEENT Exam Head: Present normocephalic Eye: Present EOMI and PERRL ENT: Present mucous membranes moist *Routine Neck Exam Neck: Present supple *Routine Respiratory Exam Respiratory: Present CTA bilaterally *Routine Cardiovascular Exam Cardiovascular: Present RRR *Routine Abdominal Exam Abdominal: Present soft and normoactive bowel sounds; Absent tenderness *Routine Rectal Exam Rectal:: deferred *Routine Genitalia Exam Genitalia:: deferred *Routine Extremities Exam Extremities: Absent cyanosis, clubbing or edema *Routine Skin Exam Skin: Present warm; Absent rash *Routine Neurological Exam Neurological: Present alert and oriented X3 Assessment and Plan *Assessment and plan (1) Personal history of adenomatous and serrated colon polyps: Status: Acute Category: Medical Code(s): Z86.0101 - Personal history of adenomatous and serrated colon polyps Plan A/P: 1. Personal history of adenomatous colon polyps is the preprocedural diagnosis. The patient will be anesthetized/sedated using MAC sedation. The patient has been seen and examined. Cardiac and lung assessment prior to the examination is stable. Proceed with planned surveillance colonoscopy
--- NOTE | 2024-08-29 07:31 | P.PCN_ITS ---
[facility] Procedure Note Date: 08/29/24 Time: 07:51 Procedure Note:: Colonoscopy Procedure Report: Colonoscopy with cold snare polypectomy Endoscopist: Jack Villafana II, MD Referring physician: Abhi Peñaloza M.D./RICO Mota Date of Procedure: August 29, 2024 Equipment: Olympus 190 variable stiffness pediatric colonoscope Sedation: MAC sedation Indication: Mrs. Almaguer is a 69-year-old female who is here for follow-up surveillance colonoscopy. The patient does have a personal history of adenomatous colon polyps. She has had several prior colonoscopies in her former hometown near [facility] and her last was 5 to 7 years ago. She did have a larger flat adenomatous polyp across haustral folds and was sent to [place] for EMR (mucosal resection) of this polyp. The patient reports no abdominal pain, weight loss, change in her bowel habits or rectal bleeding. She reports no family history of colon cancer. Her son had ulcerative colitis with complete colectomy. Procedure: Prior to the procedure, a history and physical exam was performed, and patient's medications and allergies were reviewed. The risks, benefits and alternatives of the sedation and procedure were discussed with the patient. All questions were answered and informed consent was obtained. The patient was brought to the procedure room. Patient identification and proposed procedure were verified by the physician and the nurse. The patient was placed in a left lateral decubitus position and the scope was passed under direct vision. Throughout the procedure, the patient's blood pressure, pulse, and oxygen saturations were monitored continuously. The colonoscopy was accomplished without difficulty. The patient tolerated the procedure well. Findings: On digital rectal examination there was normal rectal tone. There were no external hemorrhoids. The colonoscope was introduced through the anal canal to the rectum and advanced to the cecum. The ileocecal valve and appendiceal orifice were identified. The scope was advanced a short distance into the ileum which appeared grossly normal. The scope was then withdrawn into the colon. There were 3 polyps (cecum x 2 (3 and 3 mm) and sigmoid x 1 (6 mm)). These were removed via cold snare polypectomy. The remaining cecum, ascending and transverse colon and mucosa were grossly normal. There were scattered extensive diverticuli throughout the descending and sigmoid colon (LEFT colon). The rectum itself was normal. Upon retroflexion within the rectum there were grade 1-2 internal hemorrhoids. The preparation was excellent throughout with Scammon Preparation Score of 9. The cecal time was 12 minutes. Impression: 1. Diminutive colonic polyps x 3 2. Extensive left-sided diverticulosis 3. Grade 1-2 internal hemorrhoids Plan: I will follow-up the polyp histology and recommend repeat surveillance colonoscopy again in 5 years. She did have a former advanced adenomatous polyp. I would encourage psyllium bulking fiber supplementation on a maintenance basis.
[2024-08-29 07:32] VITALS: O2SAT 100
[2024-08-29 07:53] VITALS: BP 112/61; PULSE 74; RESP 16; TEMP 36.3; O2SAT 93
[2024-08-29 08:03] VITALS: BP 120/57; PULSE 66; RESP 16; O2SAT 92
[2024-08-29 08:17] VITALS: BP 115/84; PULSE 68; RESP 18; O2SAT 95
[2024-08-29 08:23] VITALS: BP 118/77; PULSE 65; RESP 18; TEMP 36.3; O2SAT 95
== END 2024-08-29 08:23 | disposition home or self-care (01) ==
PROVIDERS: PCP Nurse Practitioner Family; Visit Provider Internal Medicine Gastroenterology
PROC: (CPT 45385; principal; 2024-08-29 07:30)
DX: K63.5 Polyp of colon (principal); K57.30 Diverticulosis of large intestine without perforation or abscess without bleeding; K64.8 Other hemorrhoids; Z86.0101 Personal history of adenomatous and serrated colon polyps
CPT/HCPCS: 45385; 88305; J7120

== ENCOUNTER 2024-09-15 08:27 | Outpatient (CLI) | payer MEDICARE, OTHER, SELFPAY ==
--- NOTE | 2024-09-15 08:33 | MM_ITS ---
PROCEDURE INFORMATION: Exam: MG Bilateral Screening 3D Mammography Exam date and time: 09/15/2024 8:29 AM Age: 69 years old Clinical indication: Screening examination TECHNIQUE: Imaging protocol: Bilateral Screening tomosynthesis and 2D mammography including computer-aided detection (CAD) when performed. COMPARISON: 1. MG MM DIG SCREENING MAMM BI W/CAD 09/11/2023 3:11 PM 2. MG 3D SCREENING MAMMOGRAM 03/11/2022 11:37 AM FINDINGS: MAMMOGRAPHY: Breast composition: There are scattered areas of fibroglandular density. Mass: None. Architectural distortion: None. Calcifications: No suspicious calcifications. Asymmetric density: None. Skin thickening: None. Axillary adenopathy: None. IMPRESSION: No mammographic evidence of malignancy. Annual screening is recommended unless otherwise clinically indicated. ASSESSMENT: BI-RADS Category 1: Negative.
== END 2024-09-15 23:59 | disposition home or self-care (01) ==
LOC: RAD 08:28
PROVIDERS: PCP Nurse Practitioner Family; Visit Provider Nurse Practitioner Family
DX: Z12.31 Encounter for screening mammogram for malignant neoplasm of breast (principal)
CPT/HCPCS: 77063; 77067

== ENCOUNTER 2024-12-23 08:38 | Outpatient (CLI) | payer MEDICARE, OTHER, SELFPAY ==
--- NOTE | 2024-12-23 08:41 | CA_ITS ---
APPROVED REPORT EXAM: Comprehensive 2D, Doppler, and color-flow Echocardiogram Press Operator Meat: Paula Mcmahan RT(R) Ht: 5 ft 5 in Wt: 195lbs BSA: 1.96 BP: 123/69 mmHg Indications: mild-mod AI, CP, palpitations, fatigue, edema, HTN, AFIB, tachycardia, PEGGY 2D Dimensions EF AP4 66.80 % GL Strain -20.7 % M-Mode Dimensions RVDd 3.28 cm (0.9-2.6) LA Diam 2.91 cm (1.9-4.0) LVDd 4.89 cm (3.5-5.7) LVDs 3.60 cm (3.5-5.7) IVSd 0.64 cm (0.6-1.1) PWd 0.64 cm (0.6-1.1) EF (Teich) 51.60% FS 26.40% EDV (Teich) 112.30 mL ESV (Teich) 54.40 mL LV Diastology E Decel Time 313 (160-240 msec) E/A Ratio 0.49 Aortic Valve ROJELIO Index 1.42 cm2/m2 AoV Peak Gage. 115.0 (50-130 cm/s) AI PHT 777.00 ms AO Peak GR. 5.30 mmHg AO Mean GR. 2.60 (<5 mmHg) AO VTI 24.5 (18-25 cm) ROJELIO (VTI) 2.84 (2.5-4.5 cm2) Mitral Valve MV A Velocity 79.0 (40-130 cm/s) E/A Ratio 0.49 Tricuspid Valve TR P. Velocity 158.00 cm/s RAP Estimate 10.00 mmHg RVSP 20.00 mmHg Left Ventricle The left ventricle is normal size. The left ventricular systolic function is normal. The left ventricular ejection fraction is within the normal range. There is increased LV wall thickness. There is normal LV segmental wall motion. Transmitral Doppler flow pattern suggests impaired LV relaxation. LVEF is 55%. Right Ventricle The right ventricle is normal size. The right ventricular systolic function is normal. Atria The left atrium size is normal. The right atrium size is normal. There is no Doppler evidence of interatrial shunt. Aortic Valve Aortic valve is mildly thickened. Mild to moderate aortic regurgitation. There is no aortic valvular stenosis. Mitral Valve The mitral valve is normal in structure. No evidence of mitral valve stenosis. Trace mitral regurgitation. Tricuspid Valve Tricuspid valve is grossly normal in structure and function. Trace tricuspid regurgitation. RVSP is 15-20 mmHg. Pulmonic Valve The pulmonary valve is normal in structure. Mild pulmonic regurgitation. Great Vessels The aortic root is normal in size. The ascending aorta is mildly dilated, measuring 4.0 cm in diameter. IVC is normal in size and collapses >50% with inspiration. Pericardium There is no pericardial effusion. Other Information Study Quality: Fair Conclusion Normal biventricular systolic function. Mild to moderate AI. Mild PI. The ascending aorta is mildly dilated, measuring 4.0 cm in diameter. Correlation with new or recent CTA chest is suggested. Electronically signed by : Hoda Hearn MD 12/29/2024 00:30:09
== END 2024-12-23 23:59 | disposition home or self-care (01) ==
LOC: RT 08:38
PROVIDERS: PCP Nurse Practitioner Family; Visit Provider Internal Medicine
DX: I35.1 Nonrheumatic aortic (valve) insufficiency (principal); I77.810 Thoracic aortic ectasia; R00.2 Palpitations
CPT/HCPCS: 93306

== ENCOUNTER 2025-01-12 11:24 | Outpatient (CLI) | payer MEDICARE, OTHER, SELFPAY ==
[2025-01-12 11:54] LABS: Chloride 106 mmol/L (98-107)
[2025-01-12 11:55] LABS: Albumin Level 4.4 g/dl (3.5-5.0); Basophils % 0.4 % (0.1-2.0); Eosinophils # 0.2 Kmm3 (0.0-0.4); Eosinophils % 3.4 % (0.1-12.0); Hematocrit 39.6 % (37.0-47.0); Lymphocytes # 1.9 K/mm3 (0.7-4.5); Lymphocytes % 26.7 % (10-50); Mean Corpuscular HGB Conc 32.8 g/dL (31.8-35.4); Mean Corpuscular Hemoglobin 30.5 pg (27.0-31.2); Mean Platelet Volume 9.6 fl (7.4-10.4); Monocytes # 0.6 K/mm3 (0.1-1.0); Monocytes % 8.3 % (1.7-9.3); Neutrophils # 4.3 K/mm3 (1.8-7.8); Neutrophils % 60.9 % (37.0-80.0); Nucleated Red Blood Cells # 0 10^3/uL; Nucleated Red Blood Cells % 0 %; Platelet Count 373 K/mm3 (142-424); Red Blood Count 4.26 M/mm3 (4.20-5.40); Red Cell Distribution Width 12.9 % (11.5-17.5); Red Cell Distribution Width-SD 43.8 fL; Sodium 139 mmol/L (136-145); White Blood Count 7.1 K/mm3 (4.8-10.8)
[2025-01-12 11:58] LABS: Alanine Aminotransferase 24 U/L (12-78); Alkaline Phosphatase 91 U/L (38-126); Aspartate Amino Transferase 28 U/L (14-36); Bilirubin,Indirect 0.6 mg/dL (0.0-0.9); Bilirubin,Total 0.6 mg/dl (0.2-1.3); Bilirubin,Unconjugated 0.7 mg/dL (0.0-1.1); Blood Urea Nitrogen 18 mg/dl (7-17); Calcium 9.1 mg/dl (8.4-10.2); Carbon Dioxide 26 mmol/L (22.0-30.0); Cholesterol 191 mg/dl (140-200); Estimated Glomerular Filt Rate 62 ml/min (>60); GFR (African American) 75 ML/MIN (>60); Glucose 98 mg/dl (74-100); Total Protein,Serum 7.1 g/dl (6.3-8.2); Triglycerides 143 mg/dl (30-150); VLDL Cholesterol 29 mg/dL (0-40)
[2025-01-12 11:59] LABS: Chol/HDL Ratio 3.9 (1-3.5); HDL Cholesterol 49 mg/dl (40-60)
[2025-01-12 12:09] LABS: Direct LDL Cholesterol 99.18 mg/dL (100-129)
[2025-01-12 12:29] LABS: Thyroid Stimulating Hormone 1.22 uIU/mL (0.465-4.68)
[2025-01-12 13:10] LABS: Free T4 (Free Thyroxine) 0.95 ng/dl (0.78-2.19)
== END 2025-01-12 23:59 | disposition home or self-care (01) ==
LOC: LAB 11:25
PROVIDERS: PCP Nurse Practitioner Family; Visit Provider Internal Medicine
DX: R06.00 Dyspnea, unspecified (principal); R07.9 Chest pain, unspecified; R53.83 Other fatigue
CPT/HCPCS: 36415; 80048; 80061; 80076; 84439; 84443; 85025

== ENCOUNTER 2025-06-29 14:11 | Outpatient (CLI) | payer MEDICARE, OTHER, SELFPAY ==
[2025-06-29 14:47] LABS: Hematocrit 41.3 % (37.0-47.0); Hemoglobin 13.7 g/dL (12.2-16.2); Immature Granulocytes % 0.3 %; Mean Corpuscular HGB Conc 33.2 g/dL (31.8-35.4); Mean Corpuscular Hemoglobin 31.1 pg (27.0-31.2); Mean Corpuscular Volume 93.7 fl (81-99); Nucleated Red Blood Cells % 0 %; Platelet Count 456 K/mm3 (142-424); Red Blood Count 4.41 M/mm3 (4.20-5.40); Red Cell Distribution Width-SD 42.4 fL; White Blood Count 7.3 K/mm3 (4.8-10.8)
[2025-06-29 17:59] LABS: Alanine Aminotransferase 16 U/L (12-78); Albumin Level 4.4 g/dl (3.5-5.0); Alkaline Phosphatase 100 U/L (38-126); Anion Gap 17.2 mEq/L (5-15); Aspartate Amino Transferase 22 U/L (14-36); Bilirubin,Direct 0.3 mg/dl (0.0-0.4); Bilirubin,Indirect 0.3 mg/dL (0.0-0.9); Bilirubin,Total 0.6 mg/dl (0.2-1.3); Bilirubin,Unconjugated 0.3 mg/dL (0.0-1.1); Blood Urea Nitrogen 21 mg/dl (7-17); Calcium 9.7 mg/dl (8.4-10.2); Carbon Dioxide 29 mmol/L (22.0-30.0); Chloride 98 mmol/L (98-107); Cholesterol 161 mg/dl (140-200); Creatinine,Serum 1.10 mg/dl (0.52-1.04); Estimated Glomerular Filt Rate 49 ml/min (>60); GFR (African American) 60 ML/MIN (>60); Glucose 95 mg/dl (74-100); HDL Cholesterol 38 mg/dl (40-60); Magnesium 2.2 mg/dl (1.6-2.3); Potassium 4.2 mmoL/L (3.5-5.1); Sodium 140 mmol/L (136-145); Total Protein,Serum 6.9 g/dl (6.3-8.2); Triglycerides 122 mg/dl (30-150)
[2025-06-29 18:14] LABS: Free T4 (Free Thyroxine) 1.25 ng/dl (0.78-2.19)
[2025-06-29 18:29] LABS: Thyroid Stimulating Hormone 0.84 uIU/mL (0.465-4.68)
== END 2025-06-29 23:59 | disposition home or self-care (01) ==
LOC: LAB 14:12
PROVIDERS: PCP Nurse Practitioner Family; Visit Provider Internal Medicine
DX: I48.91 Unspecified atrial fibrillation (principal); I10 Essential (primary) hypertension; R60.0 Localized edema
CPT/HCPCS: 36415; 80048; 80061; 80076; 83735; 84439; 84443; 85025

== ENCOUNTER 2025-09-18 07:44 | Outpatient (CLI) | payer MEDICARE, OTHER, SELFPAY ==
--- OUTSIDE RECORDS SUMMARY | 2017-06-11 08:20 | XMS_ITS | Continuity of Care Document ---
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 Name Role Phone Elizabeth Flower MD Unavailable Unavai lable Allergies, Adverse Reactions, Alerts Substance Reaction Status Criticality Penicillins Active No Information red dye Active No Information Medications Medication Instructions Dosage Dose Quantity Effective Dates (start - stop) Status Indication Fill Status Comments Medrol (Edison) 4 mg tablets in a dose pack take by Oral route take as directed Not Availabl e 7 - Active Dermatochal asis of left upper eyelidDerma tochalasis of right upper eyelid ALEVE (unknown strength) Not Availabl e - Active DRAMAMINE (unknown strength) Not Availabl e - Active lisinopril 20 mg-hydrochl orothiazide 25 mg tablet take 1 tablet by oral route every day 1 tablet - Active Probiotic 10 billion cell capsule 1 tablet - Active Procedures Procedure Date POSTOP FOLLOW-UP VISIT Advance Directives Directive Yes / No Effective Date File Name No Information Encounters Encounter Description Practice Location Reason(s) For Visit Diagnoses Date Provider Encounter Disposition Maral , [address] [facility] [address], [place], [place], [id number], tel:[phone] [facility] Dermatochala sis of left upper eyelidDermat ochalasis of left lower eyelidDermat ochalasis of right lower eyelidDermat ochalasis of right upper eyelid 7 Rosa Maria Johnson. [address] [facility] [place], [address], [place], [place], [id number], . tel:[phone] [facility] RICHARD, [address] [place] [address], [place], [id number], [place] tel:[phone] [facility] Dermatochala sis of left lower eyelidDermat ochalasis of left upper eyelidDermat ochalasis of right lower eyelidDermat ochalasis of right upper eyelid 7 Klippenste[place] n Elizabeth. [address] [place] [address], [facility] [address], [place], [place], [id number], [place]. tel:[phone] [facility], [address] [place] [address], [place], [place], [id number], [place] tel:[phone] [facility] No Information 7 [facility] [address] [place] [address], [address], [place], [place], [id number]. tel:[phone] [facility], [address] [place] [address], [place], [place], [id number], [place] tel:[phone] [facility] Dermatochala sis of left upper eyelidDermat ochalasis of right upper eyelidDermat ochalasis of left lower eyelidDermat ochalasis of right lower eyelid Apr- 7 [facility]lippen[facility] Elizabeth. [address] [place] [address], [facility] [address], [place], [id number], [place]. tel:[phone] [facility], [address] [place] [address], [id number], [place] tel:[phone] [facility] No Information 7 [facility] [address] [place] [address], [facility] [address], [place], [place], [id number]. tel:[phone] [facility], [address] [place] [address], [id number], [place] tel:[phone] [facility] drooping of eyelids bilateral (chief complaint) Dermatochala sis of left upper eyelidDermat ochalasis of right upper eyelid Apr-0 6 [place]ppen[address] Elizabeth. [address] [place] [address], [address], [place], [place], [id number], [place]. tel:[phone] Family History Family Member Type Diagnosis Age At Onset Father Problem (finding) Cardiovascular disease Mother Problem (finding) hypertension Payers Payer name Insurance type Identifiers Authorization(s) Com ments [employer] [place] [employer] criber ID: [id number] p Name: Coverage Status Eligibility Check on: UnknownRelationship to Subscriber: selfPayer Address: [address] [place] [address] [facility], [place], [place], [id number] Phone: [phone] Social History Type Description Quantity Date Captured Comments Alcohol Use Details Caffeine Use Details Unknown Tobacco Use Status No Information Smoking Status Never smoker Sex Female Current Gender Female (finding) Chief Complaint And Reason For Visit No Information History Of Present Illness Encounter Date Complaint History Of Prese nt Illness drooping of eyelids bilateral Th is 60 year old female presents today with bilateral drooping of lids, noticibly worse in the past year. PT says the skin folds over her lashes. Pt unsure if lids interfere with vision, but she does raise brows to see better often. Pt has not had VF. Functional Status Date Description Comments No Information Instructions Date Instruction Additional Infor cj - continue massage a long incision line. Call in one month to report. f/u PRN. BP - Educational materi als provided: Post-Op Instructions. 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 Off blood thinners. Will need commercial driver day of surgery. Some discomfort. Will have sutures, will need cold soaks and ointment. Brows will not change. Will still have lines with smiling. Will not effect cheek pads or malar bags. Reviewed old photos. Educational materials provided:Blepharoplasty. Recommend BUL Bleph. VF and photo taken today. Also discussed BLL Bleph. Pt will decide if she would like to move ahead with BLL at a later date. Will proceed with BUL Bleph at this time will send to insurance KE Related to Dermatochalasis of right upper eyelid Assessments Type Assessment Date assessment Dermatochalasis of left upper ey [facility] Dermatochalasis of left lower ey [facility] Dermatochalasis of right lower [facility] Dermatochalasis of right upper e [facility]
--- OUTSIDE RECORDS SUMMARY | 2024-12-24 16:30 | XMS_ITS ---
Author Organization [facility] Address [address] [facility] [address] [place], [place] [address] Care Team Providers Care Photographic Intelligence Officer Name Role Phone GriggsEssie Primary Care Provider [phone] Abhi Peñaloza Unavailable [phone] Abhi Peñaloza Unavailable Unavailable Migration, Provider Unavailable Unavailable Allergies Allergen (clinical drug ingredient) Drug/Non Drug Allergy documented on EMR Reaction Allergy Type Onset Date Status Penicillin hives Drug Allergy Active REASON FOR VISIT [facility] To [facility] Conversion Encounter Medications Medication SIG (Take, Route, Frequency, Duration) Notes Start Date End Date Status Furosemide 20 MG Tablet 1 tab(s) orally once a day; Duration: 30 day(s) Active Lisinopril 20 MG Tablet 1 tab(s) orally once a day; Duration: 30 days Active Pravastatin Sodium 20 MG Tablet 1 tab(s) orally once a day; Duration: 30 days Active Encounters Encounter Location Date Provider Diagnosis [facility] [address] [facility] [address] [place], [place] [address] 12/24/2024 Provider Migration Plan Of Treatment Medication Medication Name Sig Start Date Stop Date Notes Furosemide 20 MG Tablet 1 tab(s) orally once a day; Duration: 30 day(s) Lisinopril 20 MG Tablet 1 tab(s) orally once a day; Duration: 30 days Pravastatin Sodium 20 MG Tablet 1 tab(s) orally once a day; Duration: 30 days Progress Notes * Bassem CAO:1955 (70 yo F)Acc No.[id number]:12/24/2024 Patient: Elizabeth Cade Provider: Jose Turcios :1955 A ge:69 Y S ex:Female Date:12/24/2024 Address:[id number] Pcp:Essie Griggs Subjective: * Chief Complaints: * [facility] Conversion Encounter * Allergies: P enicillin: hives Plan: * Treatment: Billing Information: * Procedure Codes: * Electronic signature of Prov ider Migration on 09/18/2025 at 07:49 AM EST Sign off status: Pending * Provider: Jose Turcios Date: 0 12/24/2024 Generated for Jeff crawford/Thais/Latonia on: 1 07:49 AM EST
--- NOTE | 2025-09-18 07:48 | MM_ITS ---
PROCEDURE INFORMATION: Exam: MG Bilateral Screening 3D Mammography Exam date and time: 09/18/2025 8:03 AM Age: 70 years old Clinical indication: Screening examination TECHNIQUE: Imaging protocol: Bilateral Screening tomosynthesis and 2D mammography including computer-aided detection (CAD) when performed. COMPARISON: 1. MG MM DIG SCREENING MAMM BI W/CAD 09/15/2024 8:29 AM 2. MG MM DIG SCREENING MAMM BI W/CAD 09/11/2023 3:11 PM FINDINGS: MAMMOGRAPHY: Breast composition: There are scattered areas of fibroglandular density. Mass: No suspicious masses. Architectural distortion: None. Calcifications: No suspicious calcifications. Asymmetric density: None. Skin thickening: None. Axillary adenopathy: None. IMPRESSION: No mammographic evidence of malignancy. Annual screening is recommended unless otherwise clinically indicated. ASSESSMENT: BI-RADS Category 1: Negative.
--- OUTSIDE RECORDS SUMMARY | 2025-09-18 07:48 | XMS_ITS | Encounter Summary ---
Author Organization Healthcare Address [address] [place] [address] Care Team Providers Care Lan Analyst Name Role Phone Essie Griggs Primary Care Provider [phone] Abhi Peñaloza MD Unavailable [phone] Essie Carlisle APRN Primary Care Provider [phone] Encounter Details Date Type Department Care Team (Late st Contact Info) Description 08/04/2023 Orders Only External Location [address] [place] [address] Provider, External Social History Tobacco Use Types Packs/Day Years Used Date Smoking Tobacco: Never Passive Smoke Exposure: Never Smokeless Tobacco: Never Alcohol Use Standard Drinks/Week Comments Yes 0 (1 standard drink = 0.6 oz pur e alcohol) socially Comments Unknown Sex and Gender Information Value Date Recorded Sex Assigned at Not on file Legal Sex Female 2:33 PM EDT Gender Identity Not on file Sexual Orientation Not on file documented as of this encounter Plan of Treatment Not on file documented as of this encounter Procedures Procedure Name Priority Date/Time Associated Diagnosis Comments NM OUTSIDE IMAGES 08/04/2023 10:11 AM EST documented in this encounter Results * NM OUTSIDE IMAGES (08/04/2023 10:11 AM EST) Anatomical Region Laterality Modality Nuclear Medicine 08/04/2023 10:1 1 AM EST us External Provider IMG NM PROCEDURES Final Result documented in this encounter Visit Diagnoses Not on filedocumented in this encounter Additional Health Concerns Assessment Noted Time A fall risk assessment has been complete d for the patient 07/06/2023 1:18 PM EDT documented as of this encounter Care Teams Lan Analyst Relationship Specialty Start Date End Date Essie Griggs PA [facility] [address] [address] PCP - General 01/26/23 09/28/23 Essie Carlisle APRN [address] PCP - General 09/29/23 Abhi Peñaloza MD [facility] [address] Referring Physician Internal Medicine 01/26/23 documented as of this encounter
--- OUTSIDE RECORDS SUMMARY | 2025-09-18 07:48 | XMS_ITS | Encounter Summary ---
Author Organization Healthcare Address [address] [place] [address] Care Team Providers Care Sales Closer Name Role Phone Essie Griggs Primary Care Provider [phone] Abhi Peñaloza MD Unavailable [phone] Essie Carlisle APRN Primary Care Provider [phone] Encounter Details Date Type Department Care Team (Late st Contact Info) Description 08/04/2023 Orders Only External Location [address] [place] [address] Provider, External Social History Tobacco Use Types [...] documented as of this encounter Care Teams Sales Closer Relationship Specialty Start Date End Date Essie Griggs PA [facility]A [address] PCP - General 01/26/23 09/28/23 Essie Carlisle APRN [address] PCP - General 09/29/23 Abhi Peñaloza MD [facility] [address] Referring Physician Internal Medicine 01/26/23 documented as of this encounter
--- OUTSIDE RECORDS SUMMARY | 2025-09-18 07:48 | XMS_ITS | Encounter Summary ---
Author Organization Healthcare Address [address] [place] [address] Care Team Providers Care Shot Hole Driller Name Role Phone Abhi Peñaloza MD Unavailable [phone] Essie Carlisle APRN Primary Care Provider [phone] Reason for Visit * Reason Comments Med Refill Encounter Details Date Type Department Care Team (Late st Contact Info) Description 05/16/2024 Refill [facility] [address] [place] [address] Nancy Morales APRN [address] [address] Hypertension, unspecified type Social History Tobacco Use Types Packs/Day Years Used Date Smoking Tobacco: Never Passive Smoke Exposure: Never Smokeless Tobacco: Never Alcohol Use Standard Drinks/Week Comments Yes 0 (1 standard drink = 0.6 oz pur e alcohol) socially PHQ-2 Answer Date Recorded Patient Health Questionnaire-2 Score 0 09/29/2023 Comments No Sex and Gender Information Value Date Recorded Sex Assigned at Not on file Legal Sex Female 2:33 PM EDT Gender Identity Not on file Sexual Orientation Not on file documented as of this encounter Plan of Treatment Not on file documented as of this encounter Visit Diagnoses Diagnosis Hypertension, unspecified type documented in this encounter Additional Health Concerns Assessment Noted Time A fall risk assessment has been complete d for the patient 01/12/2024 8:50 AM EDT A Body Mass Index follow-up plan has been documented for the patient 01/12/2024 9:37 AM EDT documented as of this encounter Care Teams Shot Hole Driller Relationship Specialty Start Date End Date Essie Carlisle APRN [address] PCP - General 09/29/23 Abhi Peñaloza MD [facility] [address] Referring Physician Internal Medicine 01/26/23 documented as of this encounter
--- OUTSIDE RECORDS SUMMARY | 2025-09-18 07:48 | XMS_ITS | Encounter Summary ---
Author Organization Healthcare Address [address] [place] [address] Care Team Providers Care Stars Specialist Name Role Phone Essie Griggs Primary Care Provider [phone] Abhi Peñaloza MD Unavailable [phone] Essie Carlisle APRN Primary Care Provider [phone] Encounter Details Date Type Department Care Team (Late st Contact Info) Description 08/04/2023 Orders Only External Location [address] [place] [address] Provider, External Social History Tobacco Use Types [...] documented as of this encounter Care Teams Stars Specialist Relationship Specialty Start Date End Date Essie Griggs PA Adin 2A [address] PCP - General 01/26/23 09/28/23 Essie Carlisle APRN [address] PCP - General 09/29/23 Abhi Peñaloza MD Adin 2A [address] Referring Physician Internal Medicine 01/26/23 documented as of this encounter
--- OUTSIDE RECORDS SUMMARY | 2025-09-18 07:48 | XMS_ITS | Encounter Summary ---
Author Organization Healthcare Address [address] [place] [address] Care Team Providers Care School Admissions Representative Name Role Phone Essie Griggs Primary Care Provider [phone] Abhi Peñaloza MD Unavailable [phone] Essie Carlisle APRN Primary Care Provider [phone] Encounter Details Date Type Department Care Team (Late st Contact Info) Description 08/04/2023 Orders Only External Location [address] [place] [address] Provider, External Social History Tobacco Use Types [...] documented as of this encounter Care Teams School Admissions Representative Relationship Specialty Start Date End Date Essie Griggs PA Adin 2A [address] PCP - General 01/26/23 09/28/23 Essie Carlisle APRN [address] PCP - General 09/29/23 Abhi Peñaloza MD Adin 2A [address] Referring Physician Internal Medicine 01/26/23 documented as of this encounter
--- OUTSIDE RECORDS SUMMARY | 2025-09-18 07:49 | XMS_ITS | Clinical Summary ---
Author Organization [facility] Address [address] [place] [address] Care Team Providers Care Technical Services Manager Name Role Phone Essie Carlisle APRN Primary Care Provid er Allergies Active Allergy Reactions Criticality Noted Date Comments Penicillins Rash Low 06/04/2017 Red Dye #40 (Allura Red) Hives,Rash Low 06/04/2017 Medications lisinopril-hydro chlorothiazide (PRINZIDE,ZESTOR ETIC) 10-12.5 MG per tablet Take 1 tablet by mouth Daily. Active VITAMIN D PO Take by mouth Daily. Active Active Problems Problem Noted Date Diagnosed Date Family hx colonic polyps 01/15/2018 Overview (01/15/2018): Added automatically from request for surgery [id number] Hx of adenomatous colonic polyps 01/12/2018 HTN (hypertension), benign 01/12/2018 Overview (01/12/2018): cont BP medication the day of procedure Immunizations Immunization Administration Dates Next Due Tdap 03/22/2012 Family History Medical History Relation Name Comments No Known Problems Brother Breast cancer Cousin 1 maternal Colon cancer Cousin 2 maternal Heart disease Father Colon cancer Maternal Aunt Colon polyps Maternal Aunt Alzheimer's disease Mother Breast cancer Paternal Aunt Ulcerative colitis Son 1 No Known Problems Son 2 Melanoma Neg Hx Ovarian cancer Neg Hx Uterine cancer Neg Hx Relation Name Status Comments Brother Alive Cousin 1 maternal (Age 47) dx at 45 Cousin 2 maternal Father Maternal Aunt Maternal Grandfather Maternal Grandmother Mother Paternal Aunt Paternal Grandfather Paternal Grandmother Son 1 Alive Son 2 Alive Social History Tobacco Use Types Packs/Day Years Used Date Smoking Tobacco: Never Smokeless Tobacco: Never Tobacco Cessation:Counseling Given: No Alcohol Use Standard Drinks/Week Comments Yes 0 (1 standard drink = 0.6 oz pur e alcohol) Occasional PHQ-2 Answer Date Recorded PHQ-2 Score 0 09/03/2018 Abuse Screen Answer Date Recorded Unsafe at Home or Work/School Not on file Feels Threatened by Someone? Not on file 06/2023 Does Anyone Keep You from Co ntacting Others or Doint Things Outside the Home? Not on file 06/30/2023 Physical Sign of Abuse Present Not on file 1 Housing Stability Answer Date Recorded Current Living Arrangements Not on file 06/21 Potentially Unsafe Housing Conditions Not on nani e 06/30/2023 Family and Community Support Answer Alan e Recorded Help with Day-to-Day Activities Not on file 06/30/2023 Lonely or Isolated Not on file 06/30/2023 Employment Answer Date Recorded Do you want help finding or keeping work or a elenita b? Not on file 06/30/2023 Disabilities Answer Date Recorded Concentrating, Remembering, or Making Decisions Difficulty Not on file 06/30/2023 Doing Errands Independently Difficulty Not on fi le 06/30/2023 Education Answer Date Recorded Help with school or training? Not on file Preferred Language Not on file 06/30/2023 Comments No Sex and Gender Information Value Date Recorded Sex Assigned at Not on file Legal Sex Female 6:44 AM EDT Gender Identity Not on file Sexual Orientation Not on file Last Filed Vital Signs Vital Sign Reading Time Taken Comments Blood Pressure 115/67 12/20/2020 10:20 AM CDT Pulse 68 12/20/2020 10:20 AM CDT Temperature 36.3 C (97.4 F) 12/20/2020 7:36 AM CDT Respiratory Rate 18 12/20/2020 10:20 AM CDT Oxygen Saturation 100% 12/20/2020 10:20 AM CDT Inhaled Oxygen Concentration - - Weight 86.2 kg (190 lb) 12/20/2020 7:36 AM CDT Height 165.1 cm (5' 5 ) 12/20/2020 7:36 AM CDT Body Mass Index 31.62 12/20/2020 7:36 AM CDT Plan of Treatment Health Maintenance Due Date Last Done Comments DXA SCAN 1955 COLOGUARD 2000 COLON CANCER SCREENING 5 YEA R SIGMOIDOSCOPY 2000 CT COLONOGRAPHY 2000 FECAL OCCULT BLOOD TEST 2000 FIT Testing (1 year) 2000 Pneumococcal Vaccine 50+ (1 of 1 - PCV) 2005 ZOSTER VACCINE (1 of 2) 2005 ANNUAL PHYSICAL 06/04/2018 06/04/2017 MAMMOGRAM 07/20/2021 07/20/2019, 06/21, 06/29/2017, Additional history exists TDAP/TD VACCINES (2 - Td or Tdap) 03/22/2022 012 COLONOSCOPY 12/20/2022 12/20/2020, 04/0 09/2020, 07/20/2018, Additional history exists COLORECTAL CANCER SCREENING 12/20/2022 INFLUENZA VACCINE 04/21/2025 COVID-19 Vaccine ( - 2023-2 5 season) 2025 HEPATITIS C SCREENING Completed 05/02/2015 Procedures Procedure Name Priority Date/Time Associated Diagnosis Comments COLONOSCOPY 12/20/2020 9:31 AM CDT SCANNED - MAMMO 07/20/2019 HEPATITIS PANEL, ACUTE Routine 05/02/2015 11:29 AM CDT from Last 3 Months or Most Recently Relevant to Health Maintenance Results * COLONOSCOPY (12/20/2020 9:31 AM CDT) us Cayetano Stevens MD INTERFACE NEEDS Final Result * SCANNED - MAMMO (07/20/2019) Anatomical Region Laterality Modality Other us Elizabeth Mcdaniels APRN CHART REVIEW TABS Fi nal Result * Hepatitis panel, acute (05/02/2015 11:29 AM CDT) Hepatitis B Surface Ag Negative NEGATIVE [facility] Hep B Core IgM Negative NEGATIVE [facility] Hep A IgM Negative NEGATIVE [facility] Hep C Virus Ab Negative NEGATIVE [facility] HCV S/C Ratio 0.01 [facility] Blood specimen (specimen) 05/02/2015 11:29 AM CDT Narrative [facility] - 05/02/2015 2:01 PM CDT Specimen Type: Blood us Dank Christopher MD LAB BLOOD ORDERABLES Final R esult [facility] [address] [place] [address], from Last 3 Months or Most Recently Relevant to Health Maintenance Insurance MEDICARE A & B Member Subscriber Plan / Payer (Ef fective 2020-Present) Name:Elizabeth Cao Member ID:[id number] Relation to Subscriber:Self Name:Elizabeth Cao Subscriber ID:[id number] Payer ID:[id number] Group ID:Not on file Type:Not on file Address: [address] Care Teams Technical Services Manager Relationship Specialty Start Date End Date Essie Carlisle APRN [address] [facility] [address] [place] [phone] (Work) PCP - General Family Medicine 01/27/23
--- OUTSIDE RECORDS SUMMARY | 2025-09-18 07:49 | XMS_ITS | Patient Health Record ---
Author Organization [facility] Address [address] [place], [place] [address] Care Team Providers Care Auditing Specialist Name Role Phone GriggsEssie Primary Care Provider Abhi Peñaloza Unavailable [phone] Abhi Peñaloza Unavailable Unavailable Essie Carlisle Unavailable [phone] Migration, Provider Unavailable Unavailable Allergies Allergen (clinical drug ingredient) Drug/Non Drug Allergy documented on EMR Reaction Allergy Type Onset Date Status Penicillin hives Drug Allergy Active Results Component Value Reference Range Flag Notes TSH W/REFLEX TO FT4 (76269) Reviewed date:04/03/2025 11:15:36 AM Interpretation: Performing Lab:[email or web address] [employer], XStream SystemsSqvrKJ[address] Severino George Notes/Report: NON-FASTING; NON-FASTING; NON-FASTING; NON-FASTING; NON-FAST FASTING:YES FASTING: YES TSH W/REFLEX TO FT4 1.50 0.40-4.50 mIU/L N FERRITIN (457) Reviewed date:04/03/2025 11:15:36 AM Interpretation: Performing Lab:[email or web address] [id number] [employer] [address], ConfidexDrhvDH[address] Severino George Notes/Report: NON-FASTING; NON-FASTING; NON-FASTING; NON-FASTING; NON-FAST FASTING:YES FASTING: YES FERRITIN 56 16-288 ng/mL N VITAMIN B12 (927) Reviewed date:04/03/2025 11:15:36 AM Interpretation: Performing Lab:[email or web address] [id number], [facility] HospitalDvylUK[address] Severino George Notes/Report: NON-FASTING; NON-FASTING; NON-FASTING; NON-FASTING; NON-FAST FASTING:YES FASTING: YES VITAMIN B12 997 608-3100 pg/mL N FOLATE, SERUM (466) Reviewed date:04/03/2025 11:15:36 AM Interpretation: Performing Lab:[email or web address] [id number], [facility] HospitalYjwjFH[address] Severino George Notes/Report: NON-FASTING; NON-FASTING; NON-FASTING; NON-FASTING; NON-FAST FASTING:YES FASTING: YES FOLATE, SERUM 13.3 N Reference Range Low: <3.4 Borderline: 3.4-5.4 Normal: >5.4 HEMOGLOBIN A1c (496) Reviewed date:04/03/2025 11:15:36 AM Interpretation: Performing Lab:[email or web address] [id number] [employer] [facility], [facility] HospitalFqbtMM[address] Severino George Notes/Report: NON-FASTING; NON-FASTING; NON-FASTING; NON-FASTING; NON-FAST FASTING:YES FASTING: YES HEMOGLOBIN A1c 6.0 <5.7 % H For someone without known diabetes, a hemoglobin A1c value between 5.7% and 6.4% is consistent with prediabetes and should be confirmed with a follow-up test. For someone with known diabetes, a value <7% indicates that their diabetes is well controlled. A1c targets should be individualized based on duration of diabetes, age, comorbid conditions, and other considerations. This assay result is consistent with an increased risk of diabetes. Currently, no consensus exists regarding use of hemoglobin A1c for diagnosis of diabetes for children. CBC (INCLUDES DIFF/PLT) (639 9) Reviewed date:04/03/2025 11:15:36 AM Interpretation: Performing Lab:[email or web address] [address], [place] XxruRQ[address] Severino George Notes/Report: NON-FASTING; NON-FASTING; NON-FASTING; NON-FASTING; NON-FAST FASTING:YES FASTING: YES WHITE BLOOD CELL COUNT 5.6 3.8-10.8 Thousand/uL N RED BLOOD CELL COUNT 4.28 3.80-5.10 Million/uL N HEMOGLOBIN 13.2 11.7-15.5 g/dL N HEMATOCRIT 42.0 35.0-45.0 % N MCV 98.1 80.0-100.0 fL N MCH 30.8 27.0-33.0 pg N MCHC 31.4 32.0-36.0 g/dL L For adults, a slight decrease in the calculated MCHC value (in the range of 30 to 32 g/dL) is most likely not clinically significant; however, it should be interpreted with caution in correlation with other red cell parameters and the patient's clinical condition. RDW 13.2 11.0-15.0 % N PLATELET COUNT 413 140-400 Thousand/uL H MPV 9.9 7.5-12.5 fL N ABSOLUTE NEUTROPHILS 3338 9969-5225 cells/uL N ABSOLUTE LYMPHOCYTES 5665 728-3654 cells/uL N ABSOLUTE MONOCYTES 342 200-950 cells/uL N ABSOLUTE EOSINOPHILS 241 15-500 cells/uL N ABSOLUTE BASOPHILS 39 0-200 cells/uL N NEUTROPHILS 59.6 N LYMPHOCYTES 29.3 N MONOCYTES 6.1 N EOSINOPHILS 4.3 N BASOPHILS 0.7 N COMPREHENSIVE METABOLIC PANE L (68030) Reviewed date:04/03/2025 11:15:36 AM Interpretation: Performing Lab:CB, [facility] Gyok0582 [facility], [facility] HospitalWdywSX[address] Severino George Notes/Report: NON-FASTING; NON-FASTING; NON-FASTING; NON-FASTING; NON-FAST FASTING:YES FASTING: YES GLUCOSE 97 65-99 mg/dL N Fasting reference interval UREA NITROGEN (BUN) 19 7-25 mg/dL N CREATININE 0.90 0.50-1.05 mg/dL N EGFR 69 > OR = 60 mL/min/1.73m2 N BUN/CREATININE RATIO SEE NOTE: 6-22 (calc) Not Reported: BUN and Creatinine are within reference range. SODIUM 140 135-146 mmol/L N POTASSIUM 4.0 3.5-5.3 mmol/L N CHLORIDE 102 98-110 mmol/L N CARBON DIOXIDE 29 20-32 mmol/L N CALCIUM 9.5 8.6-10.4 mg/dL N PROTEIN, TOTAL 7.1 6.1-8.1 g/dL N ALBUMIN 4.7 3.6-5.1 g/dL N GLOBULIN 2.4 1.9-3.7 g/dL (calc) N ALBUMIN/GLOBULIN RATIO 2.0 1.0-2.5 (calc) N BILIRUBIN, TOTAL 0.5 0.2-1.2 mg/dL N ALKALINE PHOSPHATASE 93 37-153 U/L N AST 18 10-35 U/L N ALT 18 6-29 U/L N LIPID PANEL, STANDARD (7600) Reviewed date:04/03/2025 11:15:36 AM Interpretation: Performing Lab:CB, [facility], [place] LukjMC[address] Severino George Notes/Report: NON-FASTING; NON-FASTING; NON-FASTING; NON-FASTING; NON-FAST FASTING:YES FASTING: YES CHOLESTEROL, TOTAL 191 <200 mg/dL N HDL CHOLESTEROL 49 > OR = 50 mg/dL L TRIGLYCERIDES 178 <150 mg/dL H LDL-CHOLESTEROL 112 H Reference range: <100 Desirable range <100 mg/dL for primary prevention; <70 mg/dL for patients with CHD or diabetic patients with > or = 2 CHD risk factors. LDL-C is now calculated using the Juanito-Abundio calculation, which is a validated novel method providing better accuracy than the Friedewald equation in the estimation of LDL-C. Juanito SS et al. JOHN. 2013;310(19): 6795-8741 (http://education.FlickIM/faq/GYR484) CHOL/HDLC RATIO 3.9 <5.0 (calc) N NON HDL CHOLESTEROL 142 <130 mg/dL (calc) H For patients with diabetes plus 1 major ASCVD risk factor, treating to a non-HDL-C goal of <100 mg/dL (LDL-C of <70 mg/dL) is considered a therapeutic option. Reason For Referral No Information Medications Medication SIG (Take, Route, Frequency, Duration) Notes Start Date End Date Status Pravastatin Sodium 40 MG Tablet 1 tab(s) orally once a day Orally Once a day; Duration: 90 days Active Lisinopril 40 MG Tablet 1 tab(s) orally once a day; Duration: 30 days Active Furosemide 40 MG Tablet 1 tab(s) orally once a day; Duration: 30 days Active Wegovy 0.25 MG/0.5ML Solution Auto-injector 0.5 mL Subcutaneous once a week; Duration: 28 days 04/01/2025 Active Metoprolol Succinate ER 50 MG Tablet Extended Release 24 Hour 1 tablet Orally Once a day A ctive Eliquis 5 MG Tablet 5 mg Orally twice a day Active Immunizations Vaccine Route Administration Date Status Comme elizabeth Adaevan (Tdap) Unknown 03/22/2012 Administered Boostrix IM Intramuscular 04/19/2024 Administered Fluzone High Dose IM Intramuscular 08/25/2023 Administered Fluzone High Dose IM Intramuscular 06/23/2024 Administered Pneumovax 23 IM Intramuscular 01/08/2023 Administered Prevnar PCV-13 (Pneumococcal conjugate 13) Unknown 03/04/2021 Administered Social History Tobacco Use: Social History Observation Description Date Details (start date - stop date) Never Smoker NA - NA Social History Social History Social Info Question Answer Notes Smoking: Are you a: nonsmoker Additional Details Category Social Info Options Details Social History Occupation: retired Travel outside [place]: no Alcohol: socially socially, margNolio itas Sexually active: yes Recreational drug use: no Exercise: yes Home smoke detector use: yes Caffeine: yes frequency: coffe e in the am, mostly caffeine free drinks Living Will No Problems Problem Type SNOMED Code ICD Code Onset Dates Problem Status W/U Status Risk Notes Problem Hypercalcemia (19186173) Hypercalcemia (E83.52) Active confirmed Problem Essential hypertension (79461358) HTN (hypertension), benign (I10) Active confirmed Problem BMI 30+ - obesity (760861997) BMI 32.0-32.9,adult (Z68.32) Active confirmed Problem Body mass index 30+ - obesity (223736172) BMI 30.0-30.9,adult (Z68.30) Active confirmed Problem Acute pain of right knee (M25.561) Active confirmed Problem Aortic root dilatation (888657989) Aortic root dilatation (I77.810) Active confirmed Problem Cardiac arrhythmia (285548469) Bigeminy (I49.9) Active confirmed Problem Atrial fibrillation (41199674) PAF (paroxysmal atrial fibrillation) (I48.0) Active confirmed Problem Idiopathic peripheral neuropathy (55469833) Neuropathy, peripheral, idiopathic (G60.9) Active confirmed Vital Signs Heart Rate 76 /min 03/30/2025 Temperature 97.5 degrees Fahrenheit 03/30/2025 Blood pressure diastolic 80 mm Hg 03/30/2025 Height 5ft 6in in 03/30/2025 Blood pressure systolic 128 mm Hg 03/30/2025 Weight 203 lbs 03/30/2025 BMI 32.76 kg/m2 03/30/2025 Encounters Encounter Location Date Provider Diagnosis [facility] [address] [place] [address] 12/24/2024 Provider Migration [facility] [address] [facility] [address] [place] [address] 03/30/2025 Essie Carlisle HTN (hypertension), benign I10 ; Medicare annual wellness visit, subsequent Z00.00 ; Arthralgia of multiple sites M25.50 ; Neuropathy, peripheral, idiopathic G60.9 ; PAF (paroxysmal atrial fibrillation) I48.0 ; Weight gain R63.5 ; IFG (impaired fasting glucose) R73.01 ; Snoring R06.83 and BMI 32.0-32.9,adult Z68.32 [facility] [address] [address] 10/13/2024 Essie Griggs [facility] [address] [address] 12/02/2024 Abhi Jh [facility] [address] [place] [address] 02/27/2025 Essie Griggs [facility] [address] [facility] [address] [place] [address] 04/01/2025 Essie Carlisle [facility] [address] [facility] [address] [place] [address] 07/18/2025 Essieluther Carlisle Breast cancer screening by mammogram Z12.31 Assessments Encounter Date Diagnosis (ICD Code) Assessment Notes Treatment Notes Treatment Clinical Notes Section Notes 03/30/2025 HTN (hypertension) , benign (ICD-10 - I10) well controlled on current regimen 03/30/2025 Medicare annual wellness visit, subsequent (ICD-10 - Z00.00) wellness recommendations for age reviewed 07/18/2025 Breast cancer screening by mammogram (ICD-10 - Z12.31) 03/30/2025 Arthralgia of multiple sites (ICD-10 - M25.50) continue tumeric supplement 03/30/2025 Neuropathy, peripheral, idiopathic (ICD-10 - G60.9) chronic, tolerable. discussed how this increases fall risk 03/30/2025 PAF (paroxysmal atrial fibrillation) (ICD-10 - I48.0) cardiology following 03/30/2025 Weight gain (ICD-10 - R63.5) labs today as noted. will investigate insurance coverage of GLP1I due to obesity with CVD 03/30/2025 IFG (impaired fasting glucose) (ICD-10 - R73.01) 03/30/2025 Snoring (ICD-10 - R06.83) consider sleep study, has discussed with cardiology as well 03/30/2025 BMI 32.0-32.9,adul t (ICD-10 - Z68.32) complicates all aspects of care and discussed importance of dietary control and increased physical activity regardless of whether or not GLP1I is started 03/30/2025 Other Learning About Living [facility] material was published Plan Of Treatment Pending Test Test Name Order Date Mammogram : Bilateral 07/18/2025 Holter Monitor, 48 hour 04/19/2024 M-Complete Blood Count Auto Diff 024 M-Comprehensive Metabolic Panel 06/27/20 24 M-Lipid Panel 06/27/2024 M-Thyroid Panel 06/27/2024 M-Parathyroid Hormone Intact 06/27/2024 M-Vitamin B12 06/27/2024 M-Vitamin D 25 Hydroxy 06/27/2024 Insurance Providers Payer Name Payer Address Payer Phone Subscriber Number Group Number Insured Name Patient Relationship to Insured Coverage Start Date Coverage End Date [place] [address] [place] [place] [address] [id number] Elizabeth Cao Self - patient is the insured [facility] [address] [address] [place] [id number] Elizabeth Cao Self - patient is the insured Medical (General) History Medical History History ICD Code Hyperlipidemia hypertension neuropathy in both feet, chronic Hyperparathyroidism s/p resection Atrial fibrillation Ascending Aorta dilation Aortic insufficiency Surgical History Surgery Date(Month/Year) Tubal Ligation 1981 parathyroid Surgery 12/2023 Right knee surgery Hospitalization History Reason Date(Month/Year) 3 Pregnancies
--- OUTSIDE RECORDS SUMMARY | 2025-09-18 07:49 | XMS_ITS | Clinical Summary ---
Author Organization [facility] Address [address] [place] [address] Care Team Providers Care Billing Clerk Name Role Phone Abhi Peñaloza MD Unavailable [phone] Essie Carlisle APRN Primary Care Provider [phone] Allergies Active Allergy Reactions Criticality Noted Date Comments Penicillins Hives Medium 05/07/2023 Red Dye #40 (Allura Red) Hives,Rash Medium 06/04/2017 Medications biotin 1000 MCG tablet Take 1 tablet (1,000 mcg) by mouth 1 (one) time each day. Active Probiotic Product (PROBIOTIC DAILY PO) Take by mouth. Activ e furosemide (Lasix) 20 MG tabletIndication s:Hypertension, unspecified type Take 0.5 tablets (10 mg) by mouth 2 (two) times a day. 90 tablet 3 3 Active Additional Information Patient taking differently:10 mg OralDaily, Reported on 12/23/2023 lisinopril 20 MG tabletIndication s:Hypertension, unspecified type Take 1 tablet (20 mg) by mouth 1 (one) time each day. 90 tablet 3 3 Active lisinopril 20 MG tablet Take 1 tablet (20 mg) by mouth 1 (one) time each day. 30 tablet 3 Active TURMERIC PO Take by mouth 1 (one) time each day. Active acetaminophen (Tylenol) 500 MG tablet Take 1 tablet (500 mg) by mouth every 6 (six) hours if needed for pain. 100 tablet 4 Active ibuprofen 600 MG tablet Take 1 tablet (600 mg) by mouth every 6 (six) hours if needed for mild pain. 40 tablet 4 Active Eliquis 5 MG tablet 5 Active metoprolol succinate XL (Toprol-XL) 50 MG 24 hr tablet Take 1 tablet by mouth daily. 5 Active pravastatin (Pravachol) 20 MG tablet 1 tab(s) orally once a day for 30 days Active furosemide (Lasix) 40 MG tablet Active lisinopril 40 MG tablet Take 1 tablet by mouth daily. 5 Active Active Problems Problem Noted Date Diagnosed Date Primary hyperparathyroidism 09/29/2023 Complex tear of medial meniscus of right knee HTN (hypertension), benign 01/12/2018 Overview (09/22/2023): cont BP medication the day of procedure Immunizations Immunization Administration Dates Next Due Influenza Vaccine, Quadrivalent, Adjuvanted 06/21 Influenza, Split (incl. eliceo fied surface antigen) 08/15/2013,08/18/2012 Influenza, high-dose, quadrivalent 08/25/2023 Influenza, injectable, quadr ivalent, preservative free 06/27/2020,07/19/2019,06/14/2018 Influenza, live, intranasal 07/16/2016, 4 Influenza, seasonal, injectable 06/08/2017 Pneumococcal Conjugate PCV 13 03/04/2021 Pneumococcal Polysaccharide PPV23 01/08/2023 Tdap 03/22/2012 Family History Medical History Relation Name Comments Breast cancer Cousin Heart attack Father James Connor Heart disease Father James Connor Breast cancer Father's Sister Stroke Maternal Grandfather Marimar Forbeedwin Alzheimer's disease Mother Anitra Connor Arthritis Mother Anitra Connor Hypertension Mother Anitra Connor Colon cancer Mother's Sister 1 Cancer Mother's Sister 2 Eunice Stevens Colon cancer Niece Anesthesia problems Neg Hx Malig Hyperthermia Neg Hx Relation Name Status Comments Cousin Father James Connor Father's Sister Maternal Grandfather Marimar Boland Mother Anitra Connor Mother's Sister 1 Mother's Sister 2 Eunice Stevens Niece Alive Social History Tobacco Use Types Packs/Day Years Used Date Smoking Tobacco: Never Passive Smoke Exposure: Never Smokeless Tobacco: Never Tobacco Cessation:Counseling Given: Not Answered Alcohol Use Standard Drinks/Week Comments Yes 0 (1 standard drink = 0.6 oz pur e alcohol) socially Humiliation, Afraid, Rape, and Kick questionnair e Answer Date Recorded Within the last year, have y ou been afraid of your partner or ex-partner? No 01/31/2025 Within the last year, have y ou been humiliated or emotionally abused in other ways by your partner or ex-partner? No Within the last year, have y ou been kicked, hit, slapped, or otherwise physically hurt by your partner or ex-partner? No 01/31/2025 Within the last year, have y ou been raped or forced to have any kind of sexual activity by your partner or ex-partner? No 01/31/2025 Social Connection and Isolation Panel Answer Date Recorded In a typical week, how many times do you talk on the phone with family, friends, or neighbors? More than three times a week 01/31/2025 How often do you get togethe r with friends or relatives? More than three times a week 01/31/2025 How often do you attend [facility] or alevism services? More than 4 times per year 01/31/2025 Do you belong to any clubs o r organizations such as christian groups, unions, fraternal or athletic groups, or school groups? No 01/31/2025 How often do you attend meet ings of the clubs or organizations you belong to? Never 01/31/2025 Are you , , di vorced, , never , or living with a partner? 01/31/2025 AUDIT-C Answer Date Recorded Q1: How often do you have a drink containing alcohol? Monthly or less 01/31/2025 Q2: How many drinks containi ng alcohol do you have on a typical day when you are drinking? Patient does not drink Q3: How often do you have si x or more drinks on one occasion? Never 01/31/2025 Overall Financial Resource Strain (CARDIA) Answe r Date Recorded How hard is it for you to pa y for the very basics like food, housing, medical care, and heating? Not very hard 01/31/2025 PHQ-2 Answer Date Recorded Patient Health Questionnaire-2 Score 0 09/29/2023 [facility] - Occupational Stress Questionnaire Answer Date Recorded Do you feel stress - tense, restless, nervous, or anxious, or unable to sleep at night because your mind is troubled all the time - these days? Not at all 01/31/2025 Exercise Vital Sign Answer Date Recorde d On average, how many days pe r week do you engage in moderate to strenuous exercise (like a brisk walk)? 1 day 01/31/2025 On average, how many minutes do you engage in exercise at this level? 30 min 01/31/2025 Hunger Vital Sign Answer Date Recorded Within the past 12 months, y ou worried that your food would run out before you got the money to buy more. Never true 02/01/20 25 Within the past 12 months, t he food you bought just didn't last and you didn't have money to get more. Never true 01/31/2025 PRAPARE - Transportation Answer Date Re corded In the past 12 months, has l ack of transportation kept you from medical appointments or from getting medications? No 01/19 In the past 12 months, has l ack of transportation kept you from meetings, work, or from getting things needed for daily living? No 01/31/2025 Housing Stability Vital Sign Answer Alan e Recorded In the last 12 months, was t here a time when you were not able to pay the mortgage or rent on time? No 01/31/2025 In the past 12 months, how m any times have you moved where you were living? 0 01/31/2025 At any time in the past 12 m [facility], were you homeless or living in a longterm (including now)? No 01/31/2025 Utilities Answer Date Recorded In the past 12 months has th e electric, gas, oil, or water company threatened to shut off services in your home? No 01/31/2025 Comments No Sex and Gender Information Value Date Recorded Sex Assigned at Not on file Legal Sex Female 2:33 PM EDT Gender Identity Not on file Sexual Orientation Not on file Last Filed Vital Signs Vital Sign Reading Time Taken Comments Blood Pressure 104/71 01/31/2025 9:57 AM EDT Pulse 61 01/31/2025 9:57 AM EDT Temperature 36.7 C (98 F) 01/31/2025 9:57 AM EDT Respiratory Rate 7 01/06/2024 5:27 PM EDT Oxygen Saturation 96% 01/31/2025 9:57 AM EDT Inhaled Oxygen Concentration - - Weight 91.5 kg (201 lb 11.5 oz) 01/31/2025 9:57 AM EDT Height 165.1 cm (5' 5 ) 01/31/2025 9:57 AM EDT Body Mass Index 33.57 01/31/2025 9:57 AM EDT Plan of Treatment Health Maintenance Due Date Last Done Comments [facility]-Bone Density Scan 1955 [facility]-Hepatitis C Screening 1955 [facility]-Medicare Annual Wellness (AWV) 1955 [facility]-/Child/Adol SDOH Screenings 1955 CT Colonography 2000 Colonoscopy 2000 FIT-DNA 2000 FIT 2000 FOBT 2000 Sigmoidoscopy 2000 [facility]-Colorectal Cancer Screening 2000 [facility]-Zoster Vaccines (1 of 2) 2005 [facility]-Breast Cancer Screening 07/08/2020 07/08/2018 [facility]-Depression Screening 09/29/2024 09/29/2023 [id number] Vaccine (3 season) 2025 05/07/2021, 04/16/2021 [facility]-Influenza Vaccine (#1) 05/22/202506/23, 08/25/2023, 07/04/2021, Additional history exists [facility]- SDOH Screenings 08/03/2025 [facility]-Adult SDOH Screenings 08/03/2025 01/31/2025 [facility]-RSV Vaccine: 60+ Years or (1 - 1-dose 75+ series) 2030 [facility]-DTaP,Tdap,and Td Vaccines (3 - Td or Tdap) 04/19/2034 04/19/2024, 03/22/2012 [facility]-Pneumococcal Vaccine: 50+ Years Completed 01/08/2023, 03/04/2021 [facility]-Obesity Intervention Completed 025, 01/12/2024, 09/29/2023 HPV Vaccines (No Doses Required) Completed [facility]-HIB Vaccines Aged Out No longer e ligible based on patient's age to complete this topic [facility]-Hepatitis A Vaccines Aged Out No longer eligible based on patient's age to complete this topic [facility]-IPV Vaccines Aged Out No longer e ligible based on patient's age to complete this topic [facility]-Rotavirus Vaccines Aged Out No lo nger eligible based on patient's age to [place] [address] [employer] Care Teams Billing Clerk Relationship Specialty Start Date End Date Essie Carlisle APRN [id number] PCP - General 09/29/23 Abhi Peñaloza MD [facility] [id number] Referring Physician Internal Medicine 01/26/23
== END 2025-09-18 23:59 | disposition home or self-care (01) ==
LOC: RAD 07:45
PROVIDERS: PCP Nurse Practitioner Family; Visit Provider Nurse Practitioner Family
DX: Z12.31 Encounter for screening mammogram for malignant neoplasm of breast (principal); R92.323 Mammographic fibroglandular density, bilateral breasts
CPT/HCPCS: 77063; 77067